=== PATIENT | female | born 1955 | race Caucasian/White ===

== ENCOUNTER → 2017-08-19 | Outpatient (CLI) | payer BC, OTHER ==
--- NOTE | 2017-08-19 09:51 | RADIOLOGY REPORT (SQ) ---
EXAM DESCRIPTION: CT ABD/PELVIS WITH IV ORAL COMPLETED DATE/TIME: 08/19/2017 9:37 am REASON FOR STUDY: RLQ ABD PAIN (R10.31) R10.31 RIGHT LOWER QUADRANT PAIN COMPARISON: None. TECHNIQUE: CT scan of the abdomen and pelvis performed using helical scanning technique with dynamic intravenous contrast injection. No oral contrast. Images reviewed with lung, soft tissue, and bone windows. Reconstructed coronal and sagittal MPR images reviewed. Delayed images for evaluation of the urinary system also acquired. All images stored on PACS. All CT scanners at this facility use dose modulation, iterative reconstruction, and/or weight based d osing when appropriate to reduce radiation dose to as low as reasonably achievable (ALARA). [facility]: Dose Right [facility]: CareDose [facility]: Dose Right [facility]: Teradose 4D [facility]: LYYN CONTRAST TYPE AND DOSE: contrast/concentration: Isovue 370.00 mg/ml; Total Contrast Delivered: 79.0 ml; Total Saline Delivered: 68.0 ml RENAL FUNCTION: Creatinine 0.6. RADIATION DOSE: CT Rad equipment meets quality standard of care and radiation dose reduction techniq ues were employed. CTDIvol: 11.6 - 13.4 mGy. DLP: 1294 mGy-cm.. LIMITATIONS: None. FINDINGS: LOWER CHEST: No significant findings. No nodules or infiltrates. LIVER: Normal size. No masses. No dilated ducts. SPLEEN: Normal size. No focal lesions. PANCREAS: No masses. No significant calcifications. No adjacent inflammation or peripancreatic fluid collections. Pancreatic duct not dilated. GALLBLADDER: Surgically absent. ADRENAL GLANDS: No significant masses or asymmetry. RIGHT KIDNEY AND URETER: No solid masses. No significant calcifications. No hydronephrosis or hyd roureter. LEFT KIDNEY AND URETER: No solid masses. No significant calcifications. No hydronephrosis or hydr oureter. AORTA AND VESSELS: No aneurysm. No dissection. Renal arteries, SMA, celiac without stenosis. RETROPERITONEUM: No retroperitoneal adenopathy, hemorrhage or masses. BOWEL AND PERITONEAL CAVITY: Previous gastric bypass. No masses or inflammatory changes. No free flu id or peritoneal masses. APPENDIX: Normal. PELVIS: No mass. No free fluid. Normal bladder. ABDOMINAL WALL: No masses. Two hernias located just above the umbilicus, containing fat only. BONES: No significant or acute findings. OTHER: No other significant finding. IMPRESSION: ABDOMINAL WALL HERNIAS LOCATED JUST ABOVE THE UMBILICUS, CONTAINING FAT ONLY. NO INVOLV EMENT OF BOWEL. NO OTHER SIGNIFICANT OR ACUTE FINDING IN THE ABDOMEN OR PELVIS ON CT SCAN WITH IV CO NTRAST. TECHNICAL DOCUMENTATION: JOB ID: [id number] Quality ID # [id number]: Final reports with documentation of one or more dose reduction techniques (e.g., Au tomated exposure control, adjustment of the mA and/or kV according to patient size, use of iterative reconstruction technique) 2010 [email or web address]- All Rights Reserved
== END ==
LOC: RAD 08:44
PROVIDERS: ATTEND Internal Medicine
DX: K43.9 Ventral hernia without obstruction or gangrene (principal)
CPT/HCPCS: 74177; 82565

== ENCOUNTER 2017-09-15 18:00 | Emergency (ER) | payer BC ==
--- NOTE | 2017-09-15 19:08 | ER Document Report ---
ED Medical Screen (RME) - General Chief Complaint: Rectal Bleeding Stated Complaint: BLOOD IN STOOL Time Seen by Provider: 09/15/17 18:58 Notes: This 62-year-old's of passing large amounts of bright red blood today with bowel movements. She does note the bowel movement burn 2 weeks ago. Previous colonoscopy they said there was something just on the inside but she is not sure if it was internal hemorrhoids or ulcerations possibly. She did have CT scan abdomen pelvis with contrast about 3 weeks ago showing 2 fat-containing abdominal hernia just above the umbilicus but no other abnormalities. I have greeted and performed a rapid initial assessment of this patient. A comprehensive ED assessment and evaluation of the patient, analysis of test results and completion of the medical decision making process will be conducted by additional ED providers. TRAVEL OUTSIDE OF THE [place] IN LAST 30 DAYS: No - Related Data Allergies/Adverse Reactions: bismuth subsalicylate [From Pepto-Bismol] Allergy (Mild, Verified 09/03/16 08:43 ) NAUSEA/VOMITTING micronase Allergy (Mild, Uncoded 09/03/16 08:43) RASH Past Medical History - Social History Chew tobacco use (# tins/day): No Frequency of alcohol use: Occasional Drug Abuse: None - Past Medical History Cardiac Medical History: Reports: Hx Hypertension Denies: Hx Coronary Artery Disease, Hx Heart Attack Pulmonary Medical History: Denies: Hx Asthma, Hx Bronchitis, Hx COPD, Hx Pneumonia Neurological Medical History: Denies: Hx Cerebrovascular Accident, Hx Seizures Renal/ Medical History: Denies: Hx Peritoneal Dialysis Musculoskeltal Medical History: Reports Hx Arthritis - LT HIP,HANDS,FINGERS Past Surgical History: Denies: Hx Hysterectomy - Immunizations Hx Diphtheria, Pertussis, Tetanus Vaccination: Yes Physical Exam - Vital signs Vitals: Temp Pulse Resp BP Pulse Ox 98.7 F 94 16 95/52 L 97 09/15/17 18:23 09/15/17 18:23 09/15/17 18:23 09/15/17 18:23 09/15/17 18:23 Course - Vital Signs Vital signs: Temp Pulse Resp BP Pulse Ox 98.7 F 94 16 95/52 L 97 09/15/17 18:23 09/15/17 18:23 09/15/17 18:23 09/15/17 18:23 09/15/17 18:23
[2017-09-15 19:39] LABS: ABSOLUTE BASOPHILS # (AUTO) 0.1 10^3/uL (0.0-0.2); ABSOLUTE EOSINOPHILS # (AUTO) 0.1 10^3/uL (0.0-0.6); ABSOLUTE LYMPHOCYTES (AUTO) 2.8 10^3/uL (0.5-4.7); ABSOLUTE MONOCYTES (AUTO) 0.4 10^3/uL (0.1-1.4); ABSOLUTE NEUT (AUTO) 4.7 10^3/uL (1.7-8.2); BASOPHILS % (AUTO) 0.9 % (0-2); EOSINOPHILS % (AUTO) 1.1 % (0-6); HEMATOCRIT 40.4 % (36.0-47.0); HEMOGLOBIN 13.5 g/dL (12.0-15.5); LYMPHOCYTES % (AUTO) 34.6 % (13-45); MEAN CORPUSCULAR HEMOGLOBIN 29.3 pg (27.0-33.4); MEAN CORPUSCULAR HGB CONC 33.3 g/dL (32.0-36.0); MEAN CORPUSCULAR VOLUME 88 fl (80-97); MONOCYTES % (AUTO) 5.4 % (3-13); PLATELET COUNT 348 10^3/uL (150-450); RED BLOOD COUNT 4.59 10^6/uL (3.72-5.28); RED CELL DISTRIBUTION WIDTH 13.2 % (11.5-14.0); TOTAL CELLS COUNTED % (AUTO) 100 %; WHITE BLOOD COUNT 8.1 10^3/uL (4.0-10.5)
[2017-09-15 19:59] LABS: ALANINE AMINOTRANSFERASE 37 U/L (9-52); ALKALINE PHOSPHATASE 110 U/L (38-126); ANION GAP 9 (5-19); ASPARTATE AMINO TRANSFERASE 22 U/L (14-36); BILIRUBIN,DIRECT 0.2 mg/dL (0.0-0.4); BILIRUBIN,TOTAL 0.4 mg/dL (0.2-1.3); BLOOD UREA NITROGEN 21 mg/dL (7-20); CALCIUM 10.1 mg/dL (8.4-10.2); CARBON DIOXIDE 31 mmol/L (22-30); CHLORIDE 97 mmol/L (98-107); GLUCOSE 268 mg/dL (75-110); POTASSIUM 4.7 mmol/L (3.6-5.0); TOTAL PROTEIN 6.5 g/dL (6.3-8.2)
[2017-09-15] MEDS ORDERED: NORMAL SALINE 1000 ML 1,000 ML IV ONE (20:41)
[2017-09-15] MEDS ORDERED: PANTOPRAZOLE SODIUM 40 MG VIAL IV ONE (20:42)
[2017-09-15] MEDS ORDERED: PANTOPRAZOLE SODIUM 40 MG VIAL IV PRN (20:43)
--- NOTE | 2017-09-15 20:48 | ER Document Report ---
ED General - General Chief Complaint: Rectal Bleeding Stated Complaint: BLOOD IN STOOL Time Seen by Provider: 09/15/17 18:58 TRAVEL OUTSIDE OF THE [place] IN LAST 30 DAYS: No - HPI Notes: Patient is a 62-year-old female with a history of hypertension, hyperglyceridemia, diabetes, status post gastric bypass who presents the ED complaining of bright red blood per rectum that began this afternoon 2. Patient states that she initially felt an urge to go to the bathroom and ended up evacuating some excretions into her underwear which she noticed to be blood. Patient then had a bowel movement that was loose and was more blood than stool. Patient states that about 3 weeks ago she had right-sided abdominal pain and had a CT scan ordered which was unremarkable for any acute pathology. Patient states that she did have one episode of dizziness upon arrival to the ED which has since resolved. Patient states that aside from that she has been feeling well without any other recent illness. She still eating and drinking without difficulties. She is urinating normally and having normal bowel movements. Patient has not noticed any rectal pain or masses on the outside of her anus. Denies any vaginal odor/bleeding/discharge. Denies being on blood thinners. Denies any headache, fever, neck pain, URI, sore throat, chest pain, palpitations, syncope, cough, shortness of breath, wheeze, dyspnea, abdominal pain, nausea/vomiting, urinary retention, dysuria, hematuria, loss of control of bowel or bladder, numbness/tingling, saddle anesthesia, muscle paralysis/ weakness, or rash. - Related Data Allergies/Adverse Reactions: bismuth subsalicylate [From Pepto-Bismol] Allergy (Mild, Verified 09/03/16 08:43 ) NAUSEA/VOMITTING micronase Allergy (Mild, Uncoded 09/03/16 08:43) RASH Past Medical History - Social History Smoking Status: Never Smoker Chew tobacco use (# tins/day): No Frequency of alcohol use: Occasional Drug Abuse: None Family History: Reviewed & Not Pertinent Patient has suicidal ideation: No Patient has homicidal ideation: No - Past Medical History Cardiac Medical History: Reports: Hx Hypertension Denies: Hx Coronary Artery Disease, Hx Heart Attack Pulmonary Medical History: Denies: Hx Asthma, Hx Bronchitis, Hx COPD, Hx Pneumonia Neurological Medical History: Denies: Hx Cerebrovascular Accident, Hx Seizures Endocrine Medical History: Reports: Hx Diabetes Mellitus Type 2 Renal/ Medical History: Denies: Hx Peritoneal Dialysis Musculoskeltal Medical History: Reports Hx Arthritis - LT HIP,HANDS,FINGERS Past Surgical History: Reports: Hx Abdominal Surgery - gastric bypass-2004. Denies: Hx Hysterectomy - Immunizations Hx Diphtheria, Pertussis, Tetanus Vaccination: Yes Hx Pneumococcal Vaccination: 06/15/15 Physical Exam - Vital signs Vitals: Temp Pulse Resp BP Pulse Ox 98.7 F 94 16 95/52 L 97 09/15/17 18:23 09/15/17 18:23 09/15/17 18:23 09/15/17 18:23 09/15/17 18:23 Course - Re-evaluation Re-evalutation: 09/15/17 21:28 Guiac positive. Vitals stable. Spoke with Dr. Whitney: discharge home with stool softener and MV, they will call her tomorrow to schedule an outpatient appointment. Pt has no new concerns or complaints at this time. 09/15/17 21:32 Patient is an afebrile, well-hydrated, 62-year-old female who presents to the ED with guaiac positive stool, suspect lower GI bleeding at this time. Vitals are stable. PE is otherwise unremarkable. Pt tolerating PO and currently asymptomatic otherwise. CBC, CMP unremarkable for any acute pathology. Low suspicion/risk for acute appendicitis, bowel obstruction, acute cholecystitis, acute cholangitis, perforated diverticulitis, incarcerated hernia, pancreatitis , perforated ulcer, peritonitis, sepsis, pelvic inflammatory disease, ectopic , tubo-ovarian abscess, ovarian torsion, severe dehydration, shock, or other systemic emergent condition at this time. Patient is aware that her condition can change from initial presentation and she needs to monitor symptoms closely and seek medical attention if any acute changes. Conservative measures otherwise for symptoms. As reviewed, the general surgeon's office will contact you tomorrow to schedule appointment for this week. Call and notify your PCM as well of your visit today. Return to the ED with any worsening/concerning symptoms otherwise as reviewed in discharge. Patient is in agreement. - Vital Signs Vital signs: Temp Pulse Resp BP Pulse Ox 98.7 F 94 16 95/52 L 97 09/15/17 18:23 09/15/17 18:23 09/15/17 18:23 09/15/17 18:23 09/15/17 18:23 - Laboratory Result Diagrams: 09/15/17 19:16 09/15/17 19:16 Laboratory results interpreted by me: 09/15/17 19:16 Chloride 97 L Carbon Dioxide 31 H BUN 21 H Glucose 268 H Discharge - Discharge Clinical Impression: GI bleed Qualifiers: GI bleed type/associated pathology: unspecified gastrointestinal hemorrhage type Qualified Code(s): K92.2 - Gastrointestinal hemorrhage, unspecified Condition: Stable Disposition: HOME, SELF-CARE Instructions: Rectal Bleeding, Unclear Cause ([facility]) Additional Instructions: Maintain adequate fluid and food intake Stool softener and multi-vitamin Zofran as needed tylenol if needed Monitor for any worsening symptoms Make sure you are staying hydrated enough to urinate and have normal BM's Recheck with your PCM in 3-5 days Keep appointment with General Surgeon, they will call you tomorrow to schedule an appointment for this week* Return to the ED with any worsening symptoms and/or development of fever, headache, chest pain, palpitations, syncope, shortness of breath, trouble breathing, abdominal pain, n/v/d, blood in stool/urine, weakness, or other worsening symptoms that are concerning to you. Prescriptions: Docusate Sodium 100 mg PO BID #10 capsule Multivitamin [Multiple Vitamins] 1 each PO DAILY #30 tablet Referrals: HALINA RAMIREZ MD [Primary Care Provider] - Follow up in 3-5 days MARCELA WHITNEY MD [ACTIVE STAFF] - Follow up in 3-5 days
[2017-09-15 22:10] VITALS: BP 96/45
== END 2017-09-15 22:10 | disposition home or self-care (01) ==
LOC: ER 18:00
DX: K92.2 Gastrointestinal hemorrhage, unspecified (principal); Z98.84 Bariatric surgery status; E11.9 Type 2 diabetes mellitus without complications; I10 Essential (primary) hypertension; R19.4 Change in bowel habit; Z88.8 Allergy status to other drugs, medicaments and biological substances
CPT/HCPCS: 99285; 96365; 36415; 85025; 82272; 80053; S0164; J7030

== ENCOUNTER 2017-09-17 04:30 | Inpatient (IN) | payer BC ==
[2017-09-17] MEDS ORDERED: NORMAL SALINE 1000 ML 1,000 ML IV ONE (05:01)
--- NOTE | 2017-09-17 05:02 | ER Document Report ---
ED GI Bleed / Rectal Pain - General Chief Complaint: Rectal Bleeding Stated Complaint: RECTAL BLEEDING Time Seen by Provider: 09/17/17 04:43 Notes: Patient is a 62-year-old female that comes emergency department for chief complaint of bloody stool. She states that she has had 3 bloody bowel movements since 1 AM, states she had a few clots as well. Stool color is maroon. She was evaluated 2 days ago and she has an appointment with Dr. Yang , gastroenterology tomorrow. She states that she has been lightheaded and had to stay in bed all day because of the lightheadedness. She was instructed to start a stool softener but could not make it to the pharmacy because of her lightheadedness. She denies fever, vomiting, abdominal pain. She does not take a blood thinner but she is taking 325 mg of aspirin daily which she put herself on. She has had colonoscopy within the past year which she states showed a polyp which they were unable to remove. Positive family history of colon cancer. Personal history of type 2 diabetes, hypertension, hyperlipidemia. Has had gastric bypass surgery, cholecystectomy. TRAVEL OUTSIDE OF THE [place] IN LAST 30 DAYS: No - Related Data Allergies/Adverse Reactions: bismuth subsalicylate [From Pepto-Bismol] Allergy (Mild, Verified 09/03/16 08:43 ) NAUSEA/VOMITTING micronase Allergy (Mild, Uncoded 09/03/16 08:43) RASH Past Medical History - General Information source: Patient - Social History Smoking Status: Never Smoker Frequency of alcohol use: None Drug Abuse: None Lives with: Family Family History: Reviewed & Not Pertinent - Past Medical History Cardiac Medical History: Reports: Hx Hypertension Denies: Hx Coronary Artery Disease, Hx Heart Attack Pulmonary Medical History: Denies: Hx Asthma, Hx Bronchitis, Hx COPD, Hx Pneumonia Neurological Medical History: Denies: Hx Cerebrovascular Accident, Hx Seizures Endocrine Medical History: Reports: Hx Diabetes Mellitus Type 2 Renal/ Medical History: Denies: Hx Peritoneal Dialysis Musculoskeltal Medical History: Reports Hx Arthritis - LT HIP,HANDS,FINGERS Past Surgical History: Reports: Hx Abdominal Surgery - gastric bypass-2004. Denies: Hx Hysterectomy - Immunizations Hx Diphtheria, Pertussis, Tetanus Vaccination: Yes Hx Pneumococcal Vaccination: 06/15/15 Review of Systems - Review of Systems Constitutional: No symptoms reported EENT: No symptoms reported Cardiovascular: See HPI Respiratory: No symptoms reported Gastrointestinal: See HPI Genitourinary: No symptoms reported Female Genitourinary: No symptoms reported Musculoskeletal: No symptoms reported Skin: No symptoms reported Hematologic/Lymphatic: No symptoms reported Neurological/Psychological: No symptoms reported Physical Exam - Vital signs Vitals: Temp Pulse Resp BP Pulse Ox 97.5 F 96 18 98/50 L 96 09/17/17 04:09/17/17 04:09/17/17 04:09/17/17 04:09/17/17 04:31 Interpretation: Normal - General General appearance: Alert In distress: None - HEENT Head: Normocephalic, Atraumatic Eyes: Normal Conjunctiva: Normal Extraocular movements intact: Yes Eyelashes: Normal Pupils: PERRL Sinus: Normal Mouth/Lips: Normal Mucous membranes: Normal Pharynx: Normal Neck: Normal - Respiratory Respiratory status: No respiratory distress Chest status: Nontender Breath sounds: Normal. No: Decreased air movement, Wheezing Chest palpation: Normal - Cardiovascular Rhythm: Regular. No: Tachycardia Heart sounds: Normal auscultation, S1 appreciated, S2 appreciated Murmur: No - Abdominal Inspection: Normal Distension: No distension Bowel sounds: Normal Tenderness: Nontender. No: Tender - Rectal Stool: Heme positive, Bloody Hemorrhoids: None - Back Back: Normal, Nontender. No: Tender - Extremities General upper extremity: Normal inspection, Nontender, Normal color, Normal ROM , Normal temperature General lower extremity: Normal inspection, Nontender, Normal color, Normal ROM , Normal temperature, Normal weight bearing. No: Jimmy's sign - Neurological Neuro grossly intact: Yes Cognition: Normal Orientation: AAOx4 Sara Coma Scale Eye Opening: Spontaneous Sara Coma Scale Verbal: Oriented Sara Coma Scale Motor: Obeys Commands Sara Coma Scale Total: 15 Speech: Normal Motor strength normal: LUE, RUE, LLE, RLE Sensory: Normal - Psychological Associated symptoms: Normal affect, Normal mood - Skin Skin Temperature: Warm Skin Moisture: Dry Skin Color: Pale Course - Re-evaluation Re-evalutation: On examination patient what appears to be mixed bloody stools, smells of GI bleed. Soft abdomen. Patient slightly pale but is not toxic in appearance. She is alert and talkative. Positive stool Hemoccult. 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 Yang, gastroenterology is on air director today. 09/17/17 05:30 Nurse informed me that patient was complaining of chest discomfort. I evaluated patient at bedside, she states that she felt a discomfort in the center of her chest for several minutes, there was very minimal and only a 1 out of 10 pain, it has already subsided before I evaluated the patient. She does not have cardiac history. Adding EKG, chest x-ray, troponin to workup. EKG showing sinus rhythm at a rate of 87, low voltage, no T-wave inversions or ST segment changes in consecutive leads, QTC is 438. On reevaluation's patient continues to be asymptomatic. Blood pressures improved after IV fluids. CBC showed significant downtrending, just over 48 hours ago her hemoglobin was 13.5, now it is 10.7. Remaining laboratory studies are unremarkable. Spoke with Dr. Garcia. Patient has not had any additional bowel movements. Blood pressure has remained stable on reevaluation. Patient unchanged from prior. 09/17/17 06:[address] [place]in, on-call for Dr. Iverson patient's provider, patient will be admitted to telemetry. Patient states agreement with this plan. She will be kept n.p.o. - Vital Signs Vital signs: Temp Pulse Resp BP Pulse Ox 97.5 F 96 13 109/56 L 98 09/17/17 04:31 09/17/17 04:31 09/17/17 07:01 09/17/17 07:01 09/17/17 07:01 - Laboratory Result Diagrams: 09/17/17 05:30 09/17/17 05:30 Laboratory results interpreted by me: 09/17/17 09/17/17 05:30 05:30 RBC 3.54 L Hgb 10.7 L D Hct 31.2 L Sodium 136.7 L BUN 25 H Glucose 301 H Total Protein 5.5 L Albumin 3.4 L Discharge - Discharge Clinical Impression: Lower GI bleed, Lightheaded Condition: Fair Disposition: ADMITTED INPATIENT Admitting Provider: [facility] Admitted: Telemetry
[2017-09-17 05:56] LABS: ABSOLUTE BASOPHILS # (AUTO) 0.1 10^3/uL (0.0-0.2); ABSOLUTE EOSINOPHILS # (AUTO) 0.1 10^3/uL (0.0-0.6); ABSOLUTE LYMPHOCYTES (AUTO) 2.5 10^3/uL (0.5-4.7); ABSOLUTE MONOCYTES (AUTO) 0.4 10^3/uL (0.1-1.4); ABSOLUTE NEUT (AUTO) 3.7 10^3/uL (1.7-8.2); BASOPHILS % (AUTO) 0.8 % (0-2); EOSINOPHILS % (AUTO) 1.7 % (0-6); HEMATOCRIT 31.2 % (36.0-47.0); LYMPHOCYTES % (AUTO) 37.3 % (13-45); MEAN CORPUSCULAR HEMOGLOBIN 30.2 pg (27.0-33.4); MEAN CORPUSCULAR HGB CONC 34.3 g/dL (32.0-36.0); MEAN CORPUSCULAR VOLUME 88 fl (80-97); MONOCYTES % (AUTO) 5.7 % (3-13); PLATELET COUNT 254 10^3/uL (150-450); RED BLOOD COUNT 3.54 10^6/uL (3.72-5.28); RED CELL DISTRIBUTION WIDTH 13.4 % (11.5-14.0); SEGMENTED NEUTROPHILS % (AUTO) 54.5 % (42-78); TOTAL CELLS COUNTED % (AUTO) 100 %; WHITE BLOOD COUNT 6.7 10^3/uL (4.0-10.5)
[2017-09-17 05:57] LABS: HEMOGLOBIN 10.7 g/dL (12.0-15.5); INTERNATIONAL RATION (INR) 0.91; PROTHROMBIN TIME 12.9 SEC (11.4-15.4)
[2017-09-17 05:58] LABS: PARTIAL THROMBOPLASTIN TIME 28.7 SEC (23.5-35.8)
--- NOTE | 2017-09-17 06:01 | RADIOLOGY REPORT (SQ) ---
EXAM DESCRIPTION: CHEST SINGLE VIEW CLINICAL HISTORY: 62 years, Female, chest pain COMPARISON: None. FINDINGS: Normal lung volume, clear parenchyma, normal cardiac silhouette, and mild scoliotic curvature. IMPRESSION: No acute cardiopulmonary findings. 2011 [employer]- All Rights Reserved
[2017-09-17 06:05] LABS: ALANINE AMINOTRANSFERASE 36 U/L (9-52); ALBUMIN 3.4 g/dL (3.5-5.0); ALKALINE PHOSPHATASE 90 U/L (38-126); ANION GAP 11 (5-19); ASPARTATE AMINO TRANSFERASE 17 U/L (14-36); BILIRUBIN,DIRECT 0.2 mg/dL (0.0-0.4); BILIRUBIN,TOTAL 0.3 mg/dL (0.2-1.3); BLOOD UREA NITROGEN 25 mg/dL (7-20); CALCIUM 9.2 mg/dL (8.4-10.2); CARBON DIOXIDE 24 mmol/L (22-30); CHLORIDE 102 mmol/L (98-107); GLUCOSE 301 mg/dL (75-110); POTASSIUM 4.3 mmol/L (3.6-5.0); SODIUM 136.7 mmol/L (137-145); TOTAL PROTEIN 5.5 g/dL (6.3-8.2)
[2017-09-17] MEDS ORDERED: NORMAL SALINE 250 ML IV PRN ×2 (07:37)
[2017-09-17] MEDS ORDERED: INSULIN LISPRO 100 UNIT/ML 3 ML VIAL SUBCUT PRN (08:15)
[2017-09-17] MEDS ORDERED: GLUCAGON,HUMAN RECOMB 1 MG INJ IM PRN (08:15)
[2017-09-17] MEDS ORDERED: DEXTROSE 40% GEL 15 GM TUBE PO PRN ×2 (08:15)
[2017-09-17] MEDS ORDERED: DEXTROSE 50%-WATER 25 GM/50 ML DISP.SYRIN IV PRN ×2 (08:15)
[2017-09-17] MEDS: NORMAL SALINE 1000 ML 1,000 ML IV PRN ×2 (08:48→19:01)
[2017-09-17 08:57] LABS: HEMATOCRIT 30.4 % (36.0-47.0); HEMOGLOBIN 10.2 g/dL (12.0-15.5); MEAN CORPUSCULAR HEMOGLOBIN 29.9 pg (27.0-33.4); MEAN CORPUSCULAR HGB CONC 33.7 g/dL (32.0-36.0); MEAN CORPUSCULAR VOLUME 89 fl (80-97); PLATELET COUNT 262 10^3/uL (150-450); RED BLOOD COUNT 3.42 10^6/uL (3.72-5.28); WHITE BLOOD COUNT 6.9 10^3/uL (4.0-10.5)
[2017-09-17 09:03] LABS: INTERNATIONAL RATION (INR) 0.93; PROTHROMBIN TIME 13.1 SEC (11.4-15.4)
[2017-09-17 09:26] LABS: CREATINE KINASE MB 4.75 ng/mL (<4.55)
[2017-09-17 09:30] LABS: FREE T4 (FREE THYROXINE) 1.09 ng/dL (0.78-2.19); TROPONIN I < 0.012 ng/mL
[2017-09-17 09:44] LABS: THYROID STIMULATING HORMONE 4.38 uIU/mL (0.47-4.68)
--- NOTE | 2017-09-17 10:23 | EKG REPORT ---
SEVERITY:- OTHERWISE NORMAL ECG - SINUS RHYTHM LOW VOLTAGE IN FRONTAL LEADS : Confirmed by: Marlena Coy 17-Sep-2017 10:23:08
--- NOTE | 2017-09-17 12:37 | PDOC CONSULTATION ---
Consultation Consult Date: 09/17/17 Attending physician:: DEION REBOLLEDO Consult reason:: GI bleeding. History of diverticulosis in the past. History of polyp History of Present Illness Admission Date/PCP: 09/17/17 08:09 HALINA RAMIREZ MD History of Present Illness: JOSUÉ HICKS is a 62 year old female She presented to the emergency room earlier today. She has been complaining of painless GI bleeding. She is a previous patient of . Her last colonoscopy was approximately a year ago. She apparently has a known history of diverticulosis. Starting Friday afternoon she had several episodes of large-volume rectal bleeding. She did have perhaps some pain on her left lower quadrant and right lower quadrant but seems to have resolved. She denies any fevers or chills. She denies any history of hypertension. She denies any history of irregular heartbeat. During her last colonoscopy she was noted to have a possible polyp. According to her Dr. garvin tattooed the area. She had been brought back for an intraoperative colonoscopy but the lesion was not to be found. She denies any chest pain or shortness of breath. No previous history of peptic ulcer disease. She does not have any hemodynamic instability. Past Medical History Cardiac Medical History: Reports: Hypertension Denies: Coronary Artery Disease, Myocardial Infarction Pulmonary Medical History: Denies: Asthma, Bronchitis, Chronic Obstructive Pulmonary Disease (COPD), Pneumonia Neurological Medical History: Denies: Seizures Endocrine Medical History: Reports: Diabetes Mellitus Type 2 Musculoskeltal Medical History: Reports: Arthritis - LT HIP,HANDS,FINGERS Psychiatric Medical History: Reports: Depression Hematology: Reports: Anemia Past Surgical History Past Surgical History: Denies: Hysterectomy Social History Lives with: Family Smoking Status: Never Smoker Frequency of Alcohol Use: None Hx Recreational Drug Use: No Drugs: None Hx Prescription Drug Abuse: No Family History Family History: Reviewed & Not Pertinent Parental Family History Reviewed: Yes Children Family History Reviewed: Unknown Sibling(s) Family History Reviewed.: Unknown Medication/Allergy Home Medications: Aspirin [Aspirin 325 mg Tablet] 325 mg PO DAILY 09/17/17 Ferrous Sulfate [Iron] 325 mg PO DAILY 09/17/17 Insulin Detemir [Levemir Flextouch] 20 unit SQ DAILY 09/17/17 Lisinopril [Prinivil 10 mg Tablet] 10 mg PO DAILY 09/17/17 Montelukast Sodium [Singulair 10 mg Tablet] 10 mg PO QHS 09/17/17 Multivitamin [Tab-A-Ginny (Multiple Vitamin) Tablet] 1 tab PO DAILY 09/17/17 [place]-3 Fatty Acids/Fish Oil [Fish Oil 1,000 mg Capsule] 1 cap PO DAILY Pravastatin Sodium [Pravachol] 20 mg PO DAILY 09/17/17 Ubidecarenone/Vitamin E Mixed [Coq10 Sg 100 Softgel] 1 cap PO DAILY 09/17/17 Vitamin B Complex [B Complex] 1 tab PO DAILY 09/17/17 Vitamin E 1,000 unit PO DAILY 09/17/17 Allergies/Adverse Reactions: bismuth subsalicylate [From Pepto-Bismol] Allergy (Mild, Verified 09/03/16 08:43 ) NAUSEA/VOMITTING micronase Allergy (Mild, Uncoded 09/03/16 08:43) RASH Review of Systems Constitutional: ABSENT: fever(s), headache(s), night sweats, weakness Eyes: ABSENT: visual disturbances Ears: ABSENT: hearing changes Nose, Mouth, and Throat: ABSENT: mouth pain, sore throat Cardiovascular: ABSENT: orthropnea, palpitations Respiratory: ABSENT: dyspnea, hemoptysis Gastrointestinal: PRESENT: hematochezia. ABSENT: melena, nausea, vomiting Genitourinary: ABSENT: dysuria, hematuria Musculoskeletal: ABSENT: deformity, joint swelling Integumentary: ABSENT: lesions, pruritus Neurological: ABSENT: syncope, tingling, tremor(s), vertigo Endocrine: ABSENT: polydipsia, polyphagia, polyuria Hematologic/Lymphatic: ABSENT: easy bruising Physical Exam Vital Signs: Temp Pulse Resp BP Pulse Ox 98.4 F 99 19 127/65 H 96 09/17/17 10:10 09/17/17 10:10 09/17/17 11:31 09/17/17 11:31 09/17/17 11:31 Intake & Output 09/16/17 09/17/17 09/18/17 06:59 06:59 06:59 Intake Total 0 Balance 0 General appearance: PRESENT: no acute distress, well-developed, well-nourished Head exam: PRESENT: atraumatic, normocephalic Eye exam: PRESENT: EOMI, PERRLA. ABSENT: nystagmus, periorbital swelling, scleral icterus Mouth exam: PRESENT: moist. ABSENT: neck supple Throat exam: ABSENT: tonsillar exudate, tonsillogmegaly Neck exam: ABSENT: meningismus, tenderness, thyromegaly Respiratory exam: PRESENT: symmetrical, unlabored. ABSENT: tachypnea, wheezes Cardiovascular exam: PRESENT: RRR, +S1, +S2 GI/Abdominal exam: PRESENT: soft. ABSENT: rebound, rigid, tenderness Extremities exam: ABSENT: joint swelling, pedal edema Musculoskeletal exam: PRESENT: full ROM Neurological exam: PRESENT: oriented to time, oriented to situation, CN II-XII grossly intact Skin exam: PRESENT: normal color. ABSENT: mottled, pallor, urticaria, vesicles Results Laboratory Results: 09/17/17 08:45 09/17/17 09/17/17 09/17/17 08:45 08:45 08:45 WBC 6.9 RBC 3.42 L Hgb 10.2 L Hct 30.4 L MCV 89 MCH 29.9 MCHC 33.7 RDW 13.0 Plt Count 262 Ammonia < 8.7 L Lipase TSH 4.38 Free T4 1.09 09/17/17 08:45 WBC RBC Hgb Hct MCV MCH MCHC RDW Plt Count Ammonia Lipase 139.0 TSH Free T4 09/17/17 09/17/17 08:45 08:45 Creatine Kinase 138 H CK-MB (CK-2) 4.75 H Troponin I < 0.012 Impressions: Chest X-Ray 09/17/17 05:30 IMPRESSION: No acute cardiopulmonary findings. 2010 [employer]- All Rights Reserved Assessment & Plan - Diagnosis (1) Lower GI bleed Plan: Likely diverticular bleeding. Agree with admission. Check H&H. Blood transfusion in progress. Patient history of a polyp that was initially seen and tattooed but on subsequent colonoscopy could not be located. We will need repeat colonoscopy. Risk benefits alternatives of the procedure including risks of bleeding, perforation requiring surgery are explained to the patient detail and informed consent was obtained. I spoke to her about the sedation. She has opted for conscious sedation medications. - Time Time Spent: 50 to 70 Minutes
[2017-09-17] MEDS: INFLUENZA ADLT QUAD (36MOS+) 2017-18 VAC 0.5 ML SYR IM PRN (12:46)
[2017-09-17 15:27] LABS: CREATINE KINASE MB 3.96 ng/mL (<4.55)
[2017-09-17 15:30] LABS: TROPONIN I < 0.012 ng/mL
--- NOTE | 2017-09-17 17:36 | PDOC H&P ---
History of Present Illness Admission Date/PCP: 09/17/17 06:52 HALINA RAMIREZ MD History of Present Illness: Patient is 62-year-old female, she is well-known to me, she has type 2 diabetes mellitus she came to the emergency room for evaluation of passage of li blood per rectum. She noticed the blood last night but does increase in quantity and frequency. She has no definitive abdominal pain. She was evaluated for abdominal pain towards the end of last year at that time she had a CAT scan of the abdomen and pelvis with contrast, it was negative for any acute pathology other than a small hernia, this blood loss is most likely a diverticular bleed, she is known to have a history of diverticulosis. Because of the profuse constant rectal bleed she would need blood transfusion and consultation requested from school library media specialist for colonoscopy. Past Medical History Cardiac Medical History: Reports: Hypertension Endocrine Medical History: Reports: Diabetes Mellitus Type 2 Musculoskeltal Medical History: Reports: Arthritis - LT HIP,HANDS,FINGERS Psychiatric Medical History: Reports: Depression Hematology: Reports: Anemia Social History Lives with: Family Smoking Status: Never Smoker Frequency of Alcohol Use: None Hx Recreational Drug Use: No Drugs: None Hx Prescription Drug Abuse: No Family History Family History: Reviewed & Not Pertinent Parental Family History Reviewed: Yes Children Family History Reviewed: Yes Sibling(s) Family History Reviewed.: Yes Medication/Allergy Home Medications: Aspirin [Aspirin 325 mg Tablet] 325 mg PO DAILY 09/17/17 Ferrous Sulfate [Iron] 325 mg PO DAILY 09/17/17 Insulin Detemir [Levemir Flextouch] 20 unit SQ DAILY 09/17/17 Lisinopril [Prinivil 10 mg Tablet] 10 mg PO DAILY 09/17/17 Montelukast Sodium [Singulair 10 mg Tablet] 10 mg PO QHS 09/17/17 Multivitamin [Tab-A-Ginny (Multiple Vitamin) Tablet] 1 tab PO DAILY 09/17/17 [place]-3 Fatty Acids/Fish Oil [Fish Oil 1,000 mg Capsule] 1 cap PO DAILY Pravastatin Sodium [Pravachol] 20 mg PO DAILY 09/17/17 Ubidecarenone/Vitamin E Mixed [Coq10 Sg 100 Softgel] 1 cap PO DAILY 09/17/17 Vitamin B Complex [B Complex] 1 tab PO DAILY 09/17/17 Vitamin E 1,000 unit PO DAILY 09/17/17 Allergies/Adverse Reactions: bismuth subsalicylate [From Pepto-Bismol] Allergy (Mild, Verified 09/03/16 08:43 ) NAUSEA/VOMITTING micronase Allergy (Mild, Uncoded 09/03/16 08:43) RASH Review of Systems Constitutional: ABSENT: chills, fever(s), headache(s), weight gain, weight loss Eyes: ABSENT: visual disturbances Ears: ABSENT: hearing changes Cardiovascular: ABSENT: chest pain, dyspnea on exertion, edema, orthropnea, palpitations Respiratory: ABSENT: cough, hemoptysis Gastrointestinal: PRESENT: hematochezia Genitourinary: ABSENT: dysuria, hematuria Musculoskeletal: ABSENT: joint swelling Integumentary: ABSENT: rash, wounds Neurological: ABSENT: abnormal gait, abnormal speech, confusion, dizziness, focal weakness, syncope Psychiatric: ABSENT: anxiety, depression, homidical ideation, suicidal ideation Endocrine: ABSENT: cold intolerance, heat intolerance, menstrual abnormalities, polydipsia, polyuria Hematologic/Lymphatic: ABSENT: easy bleeding, easy bruising, lymphadenopathy Physical Exam Vital Signs: Temp Pulse Resp BP Pulse Ox 98.1 F 84 18 138/68 H 96 09/17/17 16:30 09/17/17 16:30 09/17/17 16:30 09/17/17 16:30 09/17/17 16:30 Intake & Output 09/16/17 09/17/17 09/18/17 06:59 06:59 06:59 Intake Total 700 Output Total 300 Balance 400 General appearance: PRESENT: no acute distress, well-developed, well-nourished Head exam: PRESENT: atraumatic, normocephalic Eye exam: PRESENT: conjunctiva pink, EOMI, PERRLA Ear exam: PRESENT: normal external ear exam Mouth exam: PRESENT: moist, tongue midline Neck exam: PRESENT: full ROM. ABSENT: carotid bruit, JVD, lymphadenopathy, thyromegaly Respiratory exam: PRESENT: clear to auscultation nilda Cardiovascular exam: PRESENT: RRR, +S1, +S2. ABSENT: diastolic murmur, rubs, systolic murmur Pulses: PRESENT: normal dorsalis pedis pul, +2 pedal pulses bilateral Vascular exam: PRESENT: normal capillary refill GI/Abdominal exam: PRESENT: normal bowel sounds, soft. ABSENT: distended, guarding, mass, organolmegaly, rebound, tenderness Rectal exam: PRESENT: deferred Neurological exam: PRESENT: alert, awake, oriented to person, oriented to place , oriented to time, oriented to situation, CN II-XII grossly intact Psychiatric exam: PRESENT: appropriate affect, normal mood Skin exam: PRESENT: dry, intact, warm Results Laboratory Results: 09/17/17 08:45 09/17/17 09/17/17 09/17/17 08:45 08:45 08:45 WBC 6.9 RBC 3.42 L Hgb 10.2 L Hct 30.4 L MCV 89 MCH 29.9 MCHC 33.7 RDW 13.0 Plt Count 262 Ammonia < 8.7 L Lipase TSH 4.38 Free T4 1.09 09/17/17 08:45 WBC RBC Hgb Hct MCV MCH MCHC RDW Plt Count Ammonia Lipase 139.0 TSH Free T4 09/17/17 09/17/17 09/17/17 08:45 08:45 14:36 Creatine Kinase 138 H 111 CK-MB (CK-2) 4.75 H Troponin I < 0.012 09/17/17 14:36 Creatine Kinase CK-MB (CK-2) 3.96 Troponin I < 0.012 Impressions: Chest X-Ray 09/17/17 05:30 IMPRESSION: No acute cardiopulmonary findings. 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
[2017-09-17 18:09] LABS: APPEARANCE,URINE CLEAR; BILIRUBIN,URINE NEGATIVE (NEGATIVE); COLOR,URINE STRAW; GLUCOSE, URINE >=500 mg/dL (NEGATIVE); KETONES,URINE NEGATIVE (NEGATIVE); LEUKOCYTE ESTERASE,URINE NEGATIVE (NEGATIVE); NITRITE,URINE NEGATIVE (NEGATIVE); PROTEIN,URINE NEGATIVE (NEGATIVE); UROBILINOGEN,URINE NEGATIVE mg/dL (<2.0)
[2017-09-17] MEDS ORDERED: PEG 3350/NA SULF,BICARB,CL/KCL 4000 ML PO SCH (18:30)
[2017-09-17 21:07] LABS: ABSOLUTE BASOPHILS # (AUTO) 0.1 10^3/uL (0.0-0.2); ABSOLUTE EOSINOPHILS # (AUTO) 0.1 10^3/uL (0.0-0.6); ABSOLUTE LYMPHOCYTES (AUTO) 2.8 10^3/uL (0.5-4.7); ABSOLUTE MONOCYTES (AUTO) 0.5 10^3/uL (0.1-1.4); ABSOLUTE NEUT (AUTO) 5.3 10^3/uL (1.7-8.2); BASOPHILS % (AUTO) 0.7 % (0-2); EOSINOPHILS % (AUTO) 1.5 % (0-6); HEMATOCRIT 38.5 % (36.0-47.0); LYMPHOCYTES % (AUTO) 31.7 % (13-45); MEAN CORPUSCULAR HEMOGLOBIN 29.7 pg (27.0-33.4); MEAN CORPUSCULAR HGB CONC 34.3 g/dL (32.0-36.0); MEAN CORPUSCULAR VOLUME 87 fl (80-97); MONOCYTES % (AUTO) 5.3 % (3-13); PLATELET COUNT 267 10^3/uL (150-450); RED BLOOD COUNT 4.44 10^6/uL (3.72-5.28); RED CELL DISTRIBUTION WIDTH 13.9 % (11.5-14.0); SEGMENTED NEUTROPHILS % (AUTO) 60.8 % (42-78); TOTAL CELLS COUNTED % (AUTO) 100 %; WHITE BLOOD COUNT 8.7 10^3/uL (4.0-10.5)
[2017-09-17 21:09] LABS: HEMOGLOBIN 13.2 g/dL (12.0-15.5)
[2017-09-17 22:37] LABS: CREATINE KINASE MB 3.72 ng/mL (<4.55)
[2017-09-17 22:40] LABS: TROPONIN I < 0.012 ng/mL
[2017-09-18 07:30] LABS: ABSOLUTE BASOPHILS # (AUTO) 0.1 10^3/uL (0.0-0.2); ABSOLUTE EOSINOPHILS # (AUTO) 0.1 10^3/uL (0.0-0.6); ABSOLUTE LYMPHOCYTES (AUTO) 2.3 10^3/uL (0.5-4.7); ABSOLUTE MONOCYTES (AUTO) 0.4 10^3/uL (0.1-1.4); ABSOLUTE NEUT (AUTO) 3.6 10^3/uL (1.7-8.2); EOSINOPHILS % (AUTO) 2.1 % (0-6); HEMATOCRIT 37.3 % (36.0-47.0); HEMOGLOBIN 12.9 g/dL (12.0-15.5); LYMPHOCYTES % (AUTO) 35.4 % (13-45); MEAN CORPUSCULAR HEMOGLOBIN 29.8 pg (27.0-33.4); MEAN CORPUSCULAR HGB CONC 34.6 g/dL (32.0-36.0); MEAN CORPUSCULAR VOLUME 86 fl (80-97); MONOCYTES % (AUTO) 5.9 % (3-13); PLATELET COUNT 231 10^3/uL (150-450); RED BLOOD COUNT 4.34 10^6/uL (3.72-5.28); RED CELL DISTRIBUTION WIDTH 14.1 % (11.5-14.0); SEGMENTED NEUTROPHILS % (AUTO) 55.6 % (42-78); TOTAL CELLS COUNTED % (AUTO) 100 %; WHITE BLOOD COUNT 6.6 10^3/uL (4.0-10.5)
[2017-09-18 07:44] LABS: ALANINE AMINOTRANSFERASE 33 U/L (9-52); ALBUMIN 3.8 g/dL (3.5-5.0); ALKALINE PHOSPHATASE 93 U/L (38-126); ANION GAP 10 (5-19); ASPARTATE AMINO TRANSFERASE 22 U/L (14-36); BILIRUBIN,DIRECT 0.2 mg/dL (0.0-0.4); BILIRUBIN,TOTAL 0.6 mg/dL (0.2-1.3); BLOOD UREA NITROGEN 12 mg/dL (7-20); CALCIUM 9.5 mg/dL (8.4-10.2); CARBON DIOXIDE 22 mmol/L (22-30); CHLORIDE 107 mmol/L (98-107); CHOLESTEROL 140.06 mg/dL (0-200); GLUCOSE 240 mg/dL (75-110); POTASSIUM 4.6 mmol/L (3.6-5.0); SODIUM 139.3 mmol/L (137-145); TOTAL PROTEIN 6.1 g/dL (6.3-8.2); TRIGLYCERIDES 132 mg/dL (<150)
[2017-09-18 07:55] LABS: DIRECT LDL 58 mg/dL (<100)
[2017-09-18] MEDS ORDERED: NALOXONE HCL INJ/PF 0.4 MG/1 ML SDV ONE (08:24)
[2017-09-18] MEDS ORDERED: ONDANSETRON HCL INJ/PF 4 MG/2 ML SDV ONE (08:24)
[2017-09-18] MEDS ORDERED: DIPHENHYDRAMINE HCL 50 MG/ML VIAL ONE (08:24)
[2017-09-18] MEDS ORDERED: FENTANYL CITRATE INJ/PF 100 MCG/2 ML AMPUL ONE (08:25)
[2017-09-18] MEDS ORDERED: MIDAZOLAM 2 MG/2 ML INJ ONE (08:25)
[2017-09-18] MEDS ORDERED: EPINEPHRINE INJ 1 MG/10 ML DISP.SYRIN ONE (08:25)
[2017-09-18] MEDS ORDERED: GLUCAGON,HUMAN RECOMB 1 MG INJ ONE (08:25)
[2017-09-18] MEDS ORDERED: FLUMAZENIL INJ 0.5 MG/5 ML VIAL ONE (08:25)
[2017-09-18] MEDS: MIDAZOLAM 2 MG/2 ML INJ ONE ×3 (09:12→09:21)
--- NOTE | 2017-09-18 10:52 | Operative Report ---
Operative Report DATE OF SURGERY: 09/18/17 Operative Report: The risks, benefits and alternatives of the procedure including risks of bleeding, perforation requiring surgery are explained to the patient in detail and informed consent is obtained. Patient is taken to the endoscopy suite and placed in a left, lateral decubital position. Timeout was called. Conscious sedation medications are provided. A rectal examination is done which did not reveal any masses, tears or fissures. An Olympus videoscope was inserted into the patient's rectum. It is carefully advanced all the way to the cecum. Cecum was identified by the usual anatomical landmarks including the ileocecal valve as well as the appendiceal office. Photodocumentation is obtained. Prep is good. The scope was then sequentially pulled back via the various segments of the colon including the ascending colon, hepatic flexure, transverse colon, splenic flexure, descending colon finding to the rectosigmoid portions of the colon. Retroflexion maneuvers performed. PREOPERATIVE DIAGNOSIS: GI bleeding POSTOPERATIVE DIAGNOSIS: Diverticulosis. Internal hemorrhoids. No active bleeding seen. Small sessile polyp ablated in situ. Previous tattooed site was evaluated, no abnormalities noted. OPERATION: Colonoscopy with ablation SURGEON: DEION REBOLLEDO ANESTHESIA: Moderate Sedation - 4 mg of Versed, 50 mcg of fentanyl. Conscious sedation monitoring time 30 minutes. TISSUE REMOVED OR ALTERED: None. COMPLICATIONS: None. ESTIMATED BLOOD LOSS: None. INTRAOPERATIVE FINDINGS: As noted above. PROCEDURE: Patient tolerated the procedure well. No immediate postprocedure complications are noted. Resume regular diet. Resume regular activity level. Follow-up colonoscopy in 3-5 years No further bleeding, hemoglobin stable, if patient is able to tolerate diet, should be able to be discharged home.
--- NOTE | 2017-09-18 12:06 | PDOC DISCHARGE SUMMARY ---
General - Admit/Disc Date/PCP Admission Date/Primary Care Provider: 09/17/17 06:52 HALINA RAMIREZ MD Discharge Date: 09/18/17 - Discharge Diagnosis (1) Lower gastrointestinal bleed Is this a current diagnosis for this admission?: Yes (2) Type 2 diabetes mellitus Is this a current diagnosis for this admission?: Yes (3) Lower GI bleed Is this a current diagnosis for this admission?: Yes - Additional Information Resuscitation Status: Full Code Discharge Diet: Diabetic Discharge Activity: Activity As Tolerated Prescriptions: Aspirin [Aspirin 81 mg Chewable Tablet] 81 mg PO DAILY #90 pkg Home Medications: Ferrous Sulfate [Iron] 325 mg PO DAILY 09/17/17 Insulin Detemir [Levemir Flextouch] 20 unit SQ DAILY 09/17/17 Lisinopril [Prinivil 10 mg Tablet] 10 mg PO DAILY 09/17/17 Montelukast Sodium [Singulair 10 mg Tablet] 10 mg PO QHS 09/17/17 Multivitamin [Tab-A-Ginny (Multiple Vitamin) Tablet] 1 tab PO DAILY 09/17/17 [place]-3 Fatty Acids/Fish Oil [Fish Oil 1,000 mg Capsule] 1 cap PO DAILY Pravastatin Sodium [Pravachol] 20 mg PO DAILY 09/17/17 Ubidecarenone/Vitamin E Mixed [Coq10 Sg 100 Softgel] 1 cap PO DAILY 09/17/17 Vitamin B Complex [B Complex] 1 tab PO DAILY 09/17/17 Vitamin E 1,000 unit PO DAILY 09/17/17 Aspirin [Aspirin 81 mg Chewable Tablet] 81 mg PO DAILY #90 pkg 09/18/17 History of Present Illness History of Present Illness: Patient is 62-year-old female, she is well-known to me, she has type 2 diabetes mellitus she came to the emergency room for evaluation of passage of li blood per rectum. She noticed the blood last night but does increase in quantity and frequency. She has no definitive abdominal pain. She was evaluated for abdominal pain towards the end of last year at that time she had a CAT scan of the abdomen and pelvis with contrast, it was negative for any acute pathology other than a small hernia, this blood loss is most likely a diverticular bleed, she is known to have a history of diverticulosis. Because of the profuse constant rectal bleed she would need blood transfusion and consultation requested from bale breaker operator for colonoscopy. Hospital Course Hospital Course: She was admitted for the management of lower GI bleed, she was transfused with packed red blood cells, she was seen by bale breaker operator, Dr. Yang she had a colonoscopy this morning, there was no active bleeding found. She was transfused with 2 units of packed red blood cells. Posttransfusion hemoglobin 13.2. Patient is no longer bleeding, she be discharged home today Physical Exam Vital Signs: Temp Pulse Resp BP Pulse Ox 97.7 F 86 17 118/66 98 09/18/17 10:51 09/18/17 10:51 09/18/17 10:51 09/18/17 10:51 09/18/17 10:51 Intake & Output 09/17/17 09/18/17 09/19/17 06:59 06:59 06:59 Intake Total 700 400 Output Total 300 Balance 400 400 General appearance: PRESENT: no acute distress, well-developed, well-nourished Head exam: PRESENT: atraumatic, normocephalic Eye exam: PRESENT: conjunctiva pink, EOMI, PERRLA Ear exam: PRESENT: normal external ear exam Mouth exam: PRESENT: moist, tongue midline Neck exam: PRESENT: full ROM Respiratory exam: PRESENT: clear to auscultation nilda Cardiovascular exam: PRESENT: RRR, +S1, +S2 Pulses: PRESENT: normal dorsalis pedis pul, +2 pedal pulses bilateral Vascular exam: PRESENT: normal capillary refill GI/Abdominal exam: PRESENT: normal bowel sounds, soft Rectal exam: PRESENT: deferred Neurological exam: PRESENT: alert, awake, oriented to person, oriented to place , oriented to time, oriented to situation, CN II-XII grossly intact Psychiatric exam: PRESENT: appropriate affect, normal mood Skin exam: PRESENT: dry, intact, warm Results Laboratory Results: 09/18/17 07:09 09/18/17 07:09 09/17/17 09/17/17 09/18/17 17:44 20:55 07:09 WBC 8.7 6.6 RBC 4.44 4.34 Hgb 13.2 D 12.9 Hct 38.5 37.3 MCV 87 86 MCH 29.7 29.8 MCHC 34.3 34.6 RDW 13.9 14.1 H Plt Count 267 231 Seg Neutrophils % 60.8 55.6 Lymphocytes % 31.7 35.4 Monocytes % 5.3 5.9 Eosinophils % 1.5 2.1 Basophils % 0.7 1.0 Absolute Neutrophils 5.3 3.6 Absolute Lymphocytes 2.8 2.3 Absolute Monocytes 0.5 0.4 Absolute Eosinophils 0.1 0.1 Absolute Basophils 0.1 0.1 Sodium Potassium Chloride Carbon Dioxide Anion Gap BUN Creatinine Est GFR ( Amer) Est GFR (Non-Af Amer) Glucose Calcium Total Bilirubin AST ALT Alkaline Phosphatase Total Protein Albumin Triglycerides Cholesterol LDL Cholesterol Direct VLDL Cholesterol HDL Cholesterol Urine Color STRAW Urine Appearance CLEAR Urine pH 5.0 Ur Specific [place] 1.010 Urine Protein NEGATIVE Urine Glucose (UA) >=500 H Urine Ketones NEGATIVE Urine Blood NEGATIVE Urine Nitrite NEGATIVE Ur Leukocyte Esterase NEGATIVE Urine WBC (Auto) 1 09/18/17 07:09 WBC RBC Hgb Hct MCV MCH MCHC RDW Plt Count Seg Neutrophils % Lymphocytes % Monocytes % Eosinophils % Basophils % Absolute Neutrophils Absolute Lymphocytes Absolute Monocytes Absolute Eosinophils Absolute Basophils Sodium 139.3 Potassium 4.6 Chloride 107 Carbon Dioxide 22 Anion Gap 10 BUN 12 Creatinine 0.47 L Est GFR ( Amer) > 60 Est GFR (Non-Af Amer) > 60 Glucose 240 H Calcium 9.5 Total Bilirubin 0.6 AST 22 ALT 33 Alkaline Phosphatase 93 Total Protein 6.1 L Albumin 3.8 Triglycerides 132 Cholesterol 140.06 LDL Cholesterol Direct 58 VLDL Cholesterol 26.0 HDL Cholesterol 66 Urine Color Urine Appearance Urine pH Ur Specific [place] Urine Protein Urine Glucose (UA) Urine Ketones Urine Blood Urine Nitrite Ur Leukocyte Esterase Urine WBC (Auto) 09/17/17 09/17/17 09/17/17 08:45 08:45 14:36 Creatine Kinase 138 H 111 CK-MB (CK-2) 4.75 H Troponin I < 0.012 09/17/17 09/17/17 09/17/17 14:36 20:55 20:55 Creatine Kinase 111 CK-MB (CK-2) 3.96 3.72 Troponin I < 0.012 < 0.012 Impressions: Chest X-Ray 09/17/17 05:30 IMPRESSION: No acute cardiopulmonary findings. 2011 [employer]- All Rights Reserved
[2017-09-18] MEDS: INFLUENZA ADLT QUAD (36MOS+) 2017-18 VAC 0.5 ML SYR IM PRN (12:08)
[2017-09-18 12:40] VITALS: BP 138/68
== END 2017-09-18 13:15 | disposition home or self-care (01) | DRG 379 ==
LOC: ER 04:30 → UNDOADMIN 06:25 → EH 06:25 → UNDOADMIN 06:51 → EH 06:51 → UNDOADMIN 06:52 → EH 06:52 → UNDOADMIN 08:09 → EH 08:09 → 2S 09-18 10:33
PROVIDERS: ADMIT Internal Medicine; ATTEND Internal Medicine
PROC: 30233P1 Transfusion of Nonautologous Frozen Red Cells into Peripheral Vein, Percutaneous Approach (ICD-10-PCS; 2017-09-17)
PROC: 0D5M8ZZ Destruction of Descending Colon, Via Natural or Artificial Opening Endoscopic (ICD-10-PCS; principal; 2017-09-18 08:00)
DX: K57.31 Diverticulosis of large intestine without perforation or abscess with bleeding (principal); E11.42 Type 2 diabetes mellitus with diabetic polyneuropathy; K46.9 Unspecified abdominal hernia without obstruction or gangrene; I10 Essential (primary) hypertension; M16.12 Unilateral primary osteoarthritis, left hip; M19.042 Primary osteoarthritis, left hand; M19.041 Primary osteoarthritis, right hand; F32.9 Major depressive disorder, single episode, unspecified; D64.9 Anemia, unspecified; K64.8 Other hemorrhoids; Z79.899 Other long term (current) drug therapy; Z79.4 Long term (current) use of insulin; Z79.82 Long term (current) use of aspirin; Z86.010 Personal history of colon polyps; Z88.8 Allergy status to other drugs, medicaments and biological substances; Z98.84 Bariatric surgery status; Z90.49 Acquired absence of other specified parts of digestive tract; Z80.0 Family history of malignant neoplasm of digestive organs
CPT/HCPCS: 36415; 36430; 45385; 71045; 80048; 80053; 80061; 80076; 81001; 82140; 82272; 82550; 82553; 82962; 83036; 83690; 84439; 84443; 84484; 85025; 85027; 85610; 85730; 86850; 86900; 86901; 86920; 90686; 93005; 93010; 96360; 99285; J0171; J1200; J1610; J1815; J2250; J2310; J2405; J3010; J3490; J7030; P9016

== ENCOUNTER 2017-09-18 21:39 | Inpatient (IN) | payer BC ==
--- NOTE | 2017-09-18 22:00 | ER Document Report ---
ED General - General Stated Complaint: BLOOD IN STOOL Time Seen by Provider: 09/18/17 21:43 Mode of Arrival: Ambulatory Information source: Patient Notes: This is a 62-year-old female with a history of diabetes and recent blood in stool status post colonoscopy this morning (Dr. Yang) who presents to the emergency room with a large bloody bowel movement. Patient denies any significant abdominal pain. TRAVEL OUTSIDE OF THE [place] IN LAST 30 DAYS: No - HPI Onset: Just prior to arrival Onset/Duration: Gradual Quality of pain: No pain Severity: None Pain Level: Denies Associated symptoms: denies: Chest pain, Fever, Shortness of breath Exacerbated by: Denies Relieved by: Denies Similar symptoms previously: Yes Recently seen / treated by doctor: Yes - Related Data Allergies/Adverse Reactions: bismuth subsalicylate [From Pepto-Bismol] Allergy (Mild, Verified 09/03/16 08:43 ) NAUSEA/VOMITTING micronase Allergy (Mild, Uncoded 09/03/16 08:43) RASH Past Medical History - General Information source: Patient - Social History Smoking Status: Never Smoker Cigarette use (# per day): No Chew tobacco use (# tins/day): No Smoking Education Provided: No Frequency of alcohol use: None Drug Abuse: None Lives with: Alone Family History: Reviewed & Not Pertinent Patient has suicidal ideation: No Patient has homicidal ideation: No - Past Medical History Cardiac Medical History: Reports: Hx Hypertension Denies: Hx Coronary Artery Disease, Hx Heart Attack Pulmonary Medical History: Denies: Hx Asthma, Hx Bronchitis, Hx COPD, Hx Pneumonia Neurological Medical History: Denies: Hx Cerebrovascular Accident, Hx Seizures Endocrine Medical History: Reports: Hx Diabetes Mellitus Type 2 Renal/ Medical History: Denies: Hx Peritoneal Dialysis Musculoskeltal Medical History: Reports Hx Arthritis - LT HIP,HANDS,FINGERS Psychiatric Medical History: Reports: Hx Depression Past Surgical History: Reports: Hx Abdominal Surgery - gastric bypass-2004, Hx Hysterectomy - Immunizations Hx Diphtheria, Pertussis, Tetanus Vaccination: Yes Hx Pneumococcal Vaccination: 06/15/16 Review of Systems - Review of Systems Constitutional: denies: Chills, Fever EENT: No symptoms reported Cardiovascular: No symptoms reported Respiratory: No symptoms reported Gastrointestinal: See HPI Genitourinary: No symptoms reported Female Genitourinary: No symptoms reported Musculoskeletal: No symptoms reported Skin: No symptoms reported Hematologic/Lymphatic: No symptoms reported Neurological/Psychological: No symptoms reported Physical Exam - Vital signs Vitals: Temp Pulse Resp BP Pulse Ox 98.4 F 87 18 163/80 H 96 09/18/17 21:43 09/18/17 21:43 09/18/17 21:43 09/18/17 21:43 09/18/17 21:43 Notes: Physical exam: GENERAL: 62-year-old female, alert and oriented 3, no acute distress HEAD: Atraumatic, normocephalic. EYES: Pupils equal round and reactive to light, extraocular movements intact, sclera anicteric, conjunctiva are normal. ENT: TMs normal, nares patent, oropharynx clear without exudates. Moist mucous membranes. NECK: Normal range of motion, supple without obvious mass or JVD. LUNGS: Breath sounds clear to auscultation bilaterally and equal. No wheezes rales or rhonchi. HEART: Regular rate and rhythm without murmurs, rubs or gallops. ABDOMEN: Soft, normoactive bowel sounds. No tenderness to palpation. No guarding, no rebound. No masses appreciated. Rectal: No gross bleeding, dried blood around rectum. There is some tenderness around the anus. EXTREMITIES: Normal range of motion, no pitting or edema. No clubbing or cyanosis. NEUROLOGICAL: Cranial nerves II through XII grossly intact. Normal speech, moving all extremities. PSYCH: Normal mood, normal affect. SKIN: Warm, Dry, normal turgor, no rashes or lesions noted. Course - Re-evaluation Re-evalutation: 09/19/17 01:[address] case with both Dr. Yang and Dr. Iverson. Plan will be to admit to Dr. Iverson service and follow crits. - Vital Signs Vital signs: Temp Pulse Resp BP Pulse Ox 98.3 F 84 17 131/74 H 94 09/18/17 23:44 09/18/17 23:44 09/19/17 01:03 09/19/17 01:03 09/19/17 01:03 - Laboratory Result Diagrams: 09/18/17 22:30 09/18/17 22:30 Laboratory results interpreted by me: 09/18/17 09/18/17 22:30 22:30 Hgb 11.2 L Hct 32.5 L Sodium 136.0 L Creatinine 0.44 L Glucose 315 H Total Protein 5.3 L Albumin 3.2 L Discharge - Discharge Clinical Impression: GI bleed Condition: Stable Disposition: ADMITTED INPATIENT Admitting Provider: [facility] Admitted: Telemetry
[2017-09-18 22:44] LABS: ABSOLUTE EOSINOPHILS # (AUTO) 0.1 10^3/uL (0.0-0.6); ABSOLUTE LYMPHOCYTES (AUTO) 1.9 10^3/uL (0.5-4.7); ABSOLUTE MONOCYTES (AUTO) 0.4 10^3/uL (0.1-1.4); ABSOLUTE NEUT (AUTO) 3.9 10^3/uL (1.7-8.2); BASOPHILS % (AUTO) 0.7 % (0-2); EOSINOPHILS % (AUTO) 1.8 % (0-6); HEMATOCRIT 32.5 % (36.0-47.0); HEMOGLOBIN 11.2 g/dL (12.0-15.5); LYMPHOCYTES % (AUTO) 29.7 % (13-45); MEAN CORPUSCULAR HGB CONC 34.6 g/dL (32.0-36.0); MEAN CORPUSCULAR VOLUME 87 fl (80-97); PLATELET COUNT 223 10^3/uL (150-450); RED BLOOD COUNT 3.75 10^6/uL (3.72-5.28); RED CELL DISTRIBUTION WIDTH 13.7 % (11.5-14.0); SEGMENTED NEUTROPHILS % (AUTO) 60.8 % (42-78); TOTAL CELLS COUNTED % (AUTO) 100 %; WHITE BLOOD COUNT 6.4 10^3/uL (4.0-10.5)
[2017-09-18 22:53] LABS: INTERNATIONAL RATION (INR) 0.86; PROTHROMBIN TIME 12.4 SEC (11.4-15.4)
[2017-09-18 23:00] LABS: ALANINE AMINOTRANSFERASE 29 U/L (9-52); ALBUMIN 3.2 g/dL (3.5-5.0); ALKALINE PHOSPHATASE 87 U/L (38-126); ANION GAP 8 (5-19); ASPARTATE AMINO TRANSFERASE 19 U/L (14-36); BILIRUBIN,DIRECT 0.2 mg/dL (0.0-0.4); BILIRUBIN,TOTAL 0.2 mg/dL (0.2-1.3); BLOOD UREA NITROGEN 8 mg/dL (7-20); CALCIUM 8.8 mg/dL (8.4-10.2); CARBON DIOXIDE 22 mmol/L (22-30); CHLORIDE 106 mmol/L (98-107); GLUCOSE 315 mg/dL (75-110); TOTAL PROTEIN 5.3 g/dL (6.3-8.2)
[2017-09-19] MEDS ORDERED: DEXTROSE 50%-WATER SYRINGE 25 GM/50 ML DOSE IV PRN (04:19)
[2017-09-19] MEDS ORDERED: DEXTROSE 40% GEL 15 GM TUBE X 2 PO PRN (04:19)
[2017-09-19] MEDS ORDERED: DEXTROSE 50%-WATER SYRINGE 12.5 GM/25 ML DOSE IV PRN (04:19)
[2017-09-19] MEDS ORDERED: DEXTROSE 40% GEL 15 GM TUBE PO PRN ×3 (04:19→12:25)
[2017-09-19] MEDS ORDERED: GLUCAGON,HUMAN RECOMB 1 MG INJ IM PRN ×2 (04:19→12:25)
[2017-09-19 07:20] LABS: ABSOLUTE EOSINOPHILS # (AUTO) 0.1 10^3/uL (0.0-0.6); ABSOLUTE LYMPHOCYTES (AUTO) 2.5 10^3/uL (0.5-4.7); ABSOLUTE MONOCYTES (AUTO) 0.4 10^3/uL (0.1-1.4); ABSOLUTE NEUT (AUTO) 2.3 10^3/uL (1.7-8.2); BASOPHILS % (AUTO) 0.8 % (0-2); EOSINOPHILS % (AUTO) 2.4 % (0-6); HEMATOCRIT 31.7 % (36.0-47.0); HEMOGLOBIN 10.9 g/dL (12.0-15.5); LYMPHOCYTES % (AUTO) 45.7 % (13-45); MEAN CORPUSCULAR HEMOGLOBIN 29.8 pg (27.0-33.4); MEAN CORPUSCULAR HGB CONC 34.5 g/dL (32.0-36.0); MEAN CORPUSCULAR VOLUME 86 fl (80-97); MONOCYTES % (AUTO) 7.7 % (3-13); PLATELET COUNT 219 10^3/uL (150-450); RED BLOOD COUNT 3.66 10^6/uL (3.72-5.28); RED CELL DISTRIBUTION WIDTH 13.6 % (11.5-14.0); SEGMENTED NEUTROPHILS % (AUTO) 43.4 % (42-78); TOTAL CELLS COUNTED % (AUTO) 100 %; WHITE BLOOD COUNT 5.4 10^3/uL (4.0-10.5)
[2017-09-19 07:40] LABS: ANION GAP 7 (5-19); BLOOD UREA NITROGEN 7 mg/dL (7-20); CALCIUM 9.5 mg/dL (8.4-10.2); CARBON DIOXIDE 28 mmol/L (22-30); CHLORIDE 105 mmol/L (98-107); GLUCOSE 229 mg/dL (75-110); POTASSIUM 3.9 mmol/L (3.6-5.0); SODIUM 139.6 mmol/L (137-145)
[2017-09-19] MEDS: FERROUS SULFATE 325 MG TABLET PO SCH (09:49)
[2017-09-19] MEDS: OMEGA-3 ACID ETHYL ESTERS 1 GM CAPSULE PO SCH (09:50)
[2017-09-19] MEDS: MULTIVITAMIN TABLET PO SCH (09:50)
[2017-09-19] MEDS: LISINOPRIL 5 MG TABLET PO SCH (09:51)
[2017-09-19] MEDS: INSULIN LISPRO 100 UNIT/ML 3 ML VIAL SUBCUT PRN ×4 (09:52→22:27)
[2017-09-19] MEDS: INSULIN DETEMIR 100 UNIT/ML 3 ML PEN SUBCUT SCH (09:55)
[2017-09-19] MEDS ORDERED: VITAMIN E MIXED PO SCH (10:00)
[2017-09-19] MEDS ORDERED: (PENDING PHARMACY ID) (Vitamin E [Vitamin E] 1,000 UNIT) PO SCH ×2 (10:00→10:30)
[2017-09-19] MEDS ORDERED: (PENDING PHARMACY ID) (Omega-3 Fatty Acids/Fish Oil [Fish Oil 1,000 Mg Capsule] 1 CAP) PO SCH (10:00)
[2017-09-19] MEDS ORDERED: UBIDECARENONE PO SCH (10:00)
[2017-09-19] MEDS ORDERED: (PENDING PHARMACY ID) (Vitamin B Complex [B Complex] 1 TAB) PO SCH (10:00)
[2017-09-19] MEDS ORDERED: FERROUS SULFATE 325 MG TABLET PO SCH ×2 (10:00→11:00)
[2017-09-19] MEDS ORDERED: ASPIRIN 81 MG TABLET, CHEWABLE PO SCH (10:00)
[2017-09-19] MEDS ORDERED: (PENDING PHARMACY ID) (Vitamin B Complex [B Complex] 1 CAP) PO SCH (10:30)
[2017-09-19] MEDS ORDERED: UBIDECARENONE 400 MG PO SCH (10:30)
[2017-09-19] MEDS ORDERED: (PENDING PHARMACY ID) (Omega-3 Fatty Acids [Omega-3] 1,000 MG) PO SCH (10:30)
[2017-09-19] MEDS ORDERED: (PENDING PHARMACY ID) (Cholecalciferol (Vitamin D3) [Vitamin D3] 1,000 UNIT) PO SCH (10:30)
[2017-09-19] MEDS ORDERED: MULTIVITAMIN TABLET PO SCH (10:30)
[2017-09-19] MEDS ORDERED: INSULIN LISPRO 5 UNIT SQ SCH (10:30)
[2017-09-19] MEDS ORDERED: INSULIN DETEMIR 100 UNIT/ML 3 ML PEN SUBCUT SCH (10:30)
[2017-09-19] MEDS ORDERED: METFORMIN HCL 500 MG TABLET PO SCH (11:00)
--- NOTE | 2017-09-19 12:02 | PDOC PROGRESS REPORT ---
Subjective Progress Note for:: 09/19/17 Subjective:: patient had been discharged earlier in the day, and re-presented later on last evening with rectal bleeding, again bright red blood per rectum patient had Hgb in the ED at 11.2 this am is stable at 10.9 had colonoscopy yesterday small polyp ablated significant diverticulosis and internal hemorrhoids are noted stable will need to be admitted, watch H/H and any clinical bleeding, patient could have had residual diverticular bleeding ? possible hemorrhoids spoke with Dr Delgado would see if any further bleeding , observation required if further bleeding, consider bleeding scan Reason For Visit: GI BLEED Physical Exam Vital Signs: Temp Pulse Resp BP Pulse Ox 97.6 F 84 18 111/71 98 09/19/17 09:25 09/18/17 23:44 09/19/17 10:01 09/19/17 10:00 09/19/17 10:01 Intake & Output 09/18/17 09/19/17 09/20/17 06:59 06:59 06:59 Intake Total 0 Balance 0 Weight 75 kg General appearance: PRESENT: no acute distress, well-developed, well-nourished Head exam: PRESENT: atraumatic, normocephalic Eye exam: PRESENT: EOMI, PERRLA. ABSENT: nystagmus, periorbital swelling, scleral icterus Mouth exam: PRESENT: moist Throat exam: ABSENT: tonsillar exudate, tonsillogmegaly Neck exam: ABSENT: meningismus, tenderness, thyromegaly Respiratory exam: PRESENT: symmetrical, unlabored. ABSENT: tachypnea, wheezes Cardiovascular exam: PRESENT: RRR, +S1, +S2 GI/Abdominal exam: PRESENT: soft. ABSENT: rebound, rigid, tenderness Extremities exam: ABSENT: joint swelling Musculoskeletal exam: PRESENT: full ROM Neurological exam: PRESENT: oriented to time, oriented to situation, reflexes normal, CN II-XII grossly intact Psychiatric exam: PRESENT: appropriate affect Skin exam: PRESENT: normal color. ABSENT: mottled, pallor, urticaria, vesicles Results Laboratory Results: 09/19/17 07:00 09/19/17 07:00 09/19/17 09/19/17 07:00 07:00 WBC 5.4 RBC 3.66 L Hgb 10.9 L Hct 31.7 L MCV 86 MCH 29.8 MCHC 34.5 RDW 13.6 Plt Count 219 Seg Neutrophils % 43.4 Lymphocytes % 45.7 H Monocytes % 7.7 Eosinophils % 2.4 Basophils % 0.8 Absolute Neutrophils 2.3 Absolute Lymphocytes 2.5 Absolute Monocytes 0.4 Absolute Eosinophils 0.1 Absolute Basophils 0.0 Sodium 139.6 Potassium 3.9 Chloride 105 Carbon Dioxide 28 Anion Gap 7 BUN 7 Creatinine 0.48 L Est GFR ( Amer) > 60 Est GFR (Non-Af Amer) > 60 Glucose 229 H Calcium 9.5 Assessment & Plan - Diagnosis (1) GI bleed Plan: colonoscopy done yesterday has both right and left sided diverticulosis may have had a residual bleeding stable watch clinically, check H/H do not suspect post polypectomy bleeding since the polyp was ablated rather than snared clear liquid diet, adv as tolerated, watch for any further bleeding bleeding scan may be needed - Time Time Spent with patient: 15-24 minutes
[2017-09-19] MEDS ORDERED: DEXTROSE 50%-WATER 25 GM/50 ML DISP.SYRIN IV PRN ×2 (12:25)
[2017-09-19] MEDS ORDERED: INSULIN LISPRO 100 UNIT/ML 3 ML VIAL SUBCUT PRN (12:25)
[2017-09-19] MEDS: GABAPENTIN 300 MG CAPSULE PO SCH ×2 (13:24→22:06)
--- NOTE | 2017-09-19 13:34 | PDOC H&P ---
History of Present Illness Admission Date/PCP: 09/19/17 00:56 HALINA RAMIREZ MD History of Present Illness: JOSUÉ HICKS is a 62 year old female, She was just discharged from this hospital yesterday when she presented with lower GI bleed, she was transfused with 2 units of packed red blood cells the last time she was admitted and she was seen by the border patrol officer,DR Yang she underwent colonoscopy, she was found to have diverticulosis and internal hemorrhoids but no active bleeding was identified. She came to the emergency room last night because she said she had an episode of rectal bleed, there is no active bleeding ongoing at this time but because she stated that she has rectal bleed she is been admitted for close monitoring and if needed she may need a bleeding scan if active bleeding ensues Past Medical History Cardiac Medical History: Reports: Hypertension Endocrine Medical History: Reports: Diabetes Mellitus Type 2 Musculoskeltal Medical History: Reports: Arthritis - LT HIP,HANDS,FINGERS Psychiatric Medical History: Reports: Depression Hematology: Reports: Anemia Past Surgical History Past Surgical History: Reports: Hysterectomy Social History Lives with: Alone Smoking Status: Never Smoker Frequency of Alcohol Use: None Hx Recreational Drug Use: No Drugs: None Hx Prescription Drug Abuse: No Family History Family History: Reviewed & Not Pertinent Parental Family History Reviewed: Yes Children Family History Reviewed: Yes Sibling(s) Family History Reviewed.: Yes Medication/Allergy Home Medications: Aspirin [Aspirin 81 mg Chewable Tablet] 81 mg PO DAILY 09/19/17 Cholecalciferol (Vitamin D3) [Vitamin D3] 1,000 unit PO DAILY 09/19/17 Ferrous Sulfate [Feosol 325 mg Tablet] 325 mg PO Q2D 09/19/17 Insulin Detemir [Levemir Flextouch] 20 units SQ DAILY 09/19/17 Insulin Lispro [Humalog Kwikpen U-100] 5 units SQ .SLIDING SCALE 09/19/17 Lisinopril [Prinivil 5 mg Tablet] 5 mg PO QHS 09/19/17 Metformin HCl [Glucophage 500 mg Tablet] 500 mg PO BIDBS 09/19/17 Multivitamin [Tab-A-Ginny (Multiple Vitamin) Tablet] 1 tab PO DAILY 09/19/17 [place]-3 Fatty Acids [[place]-3] 1,000 mg PO DAILY 09/19/17 Pravastatin Sodium [Pravachol] 20 mg PO QHS 09/19/17 Ubidecarenone [Coq-10] 400 mg PO DAILY 09/19/17 Vitamin B Complex [B Complex] 1 cap PO DAILY 09/19/17 Vitamin E 1,000 unit PO DAILY 09/19/17 Allergies/Adverse Reactions: bismuth subsalicylate [From Pepto-Bismol] Allergy (Mild, Verified 09/03/16 08:43 ) NAUSEA/VOMITTING micronase Allergy (Mild, Uncoded 09/03/16 08:43) RASH Review of Systems Constitutional: ABSENT: chills, fever(s), headache(s), weight gain, weight loss Eyes: ABSENT: visual disturbances Ears: ABSENT: hearing changes Cardiovascular: ABSENT: chest pain, dyspnea on exertion, edema, orthropnea, palpitations Respiratory: ABSENT: cough, hemoptysis Gastrointestinal: PRESENT: hematochezia Genitourinary: ABSENT: dysuria, hematuria Musculoskeletal: ABSENT: joint swelling Integumentary: ABSENT: rash, wounds Neurological: ABSENT: abnormal gait, abnormal speech, confusion, dizziness, focal weakness, syncope Psychiatric: ABSENT: anxiety, depression, homidical ideation, suicidal ideation Endocrine: ABSENT: cold intolerance, heat intolerance, menstrual abnormalities, polydipsia, polyuria Hematologic/Lymphatic: ABSENT: easy bleeding, easy bruising, lymphadenopathy Physical Exam Vital Signs: Temp Pulse Resp BP Pulse Ox 97.6 F 84 18 111/71 98 09/19/17 09:25 09/18/17 23:44 09/19/17 10:01 09/19/17 10:00 09/19/17 10:01 Intake & Output 09/18/17 09/19/17 09/20/17 06:59 06:59 06:59 Intake Total 0 Balance 0 Weight 75 kg General appearance: PRESENT: no acute distress, well-developed, well-nourished Head exam: PRESENT: atraumatic, normocephalic Eye exam: PRESENT: conjunctiva pink, EOMI, PERRLA Ear exam: PRESENT: normal external ear exam Mouth exam: PRESENT: moist, tongue midline Neck exam: PRESENT: full ROM Respiratory exam: PRESENT: clear to auscultation nilda Cardiovascular exam: PRESENT: RRR, +S1, +S2 Pulses: PRESENT: normal dorsalis pedis pul, +2 pedal pulses bilateral Vascular exam: PRESENT: normal capillary refill GI/Abdominal exam: PRESENT: normal bowel sounds, soft Rectal exam: PRESENT: deferred Neurological exam: PRESENT: alert, awake, oriented to person, oriented to place , oriented to time, oriented to situation, CN II-XII grossly intact Psychiatric exam: PRESENT: appropriate affect, normal mood Skin exam: PRESENT: dry, intact, warm Results Laboratory Results: 09/19/17 07:00 09/19/17 07:00 09/19/17 09/19/17 07:00 07:00 WBC 5.4 RBC 3.66 L Hgb 10.9 L Hct 31.7 L MCV 86 MCH 29.8 MCHC 34.5 RDW 13.6 Plt Count 219 Seg Neutrophils % 43.4 Lymphocytes % 45.7 H Monocytes % 7.7 Eosinophils % 2.4 Basophils % 0.8 Absolute Neutrophils 2.3 Absolute Lymphocytes 2.5 Absolute Monocytes 0.4 Absolute Eosinophils 0.1 Absolute Basophils 0.0 Sodium 139.6 Potassium 3.9 Chloride 105 Carbon Dioxide 28 Anion Gap 7 BUN 7 Creatinine 0.48 L Est GFR ( Amer) > 60 Est GFR (Non-Af Amer) > 60 Glucose 229 H Calcium 9.5 Assessment & Plan - Diagnosis (1) Hematochezia Is this a current diagnosis for this admission?: Yes Plan: Patient is admitted for observation and for close monitoring, if Bleeding should become active she will require a bleeding scan to definitively localize the source of bleed. It was assumed the last time she was admitted that she probably bled from diverticulosis but on colonoscopy there was no active bleeding identified
[2017-09-19 15:42] LABS: APPEARANCE,URINE SLIGHTLY-CLOUDY; BILIRUBIN,URINE NEGATIVE (NEGATIVE); COLOR,URINE YELLOW; GLUCOSE, URINE >=500 mg/dL (NEGATIVE); KETONES,URINE NEGATIVE (NEGATIVE); LEUKOCYTE ESTERASE,URINE NEGATIVE (NEGATIVE); NITRITE,URINE NEGATIVE (NEGATIVE); PROTEIN,URINE NEGATIVE (NEGATIVE); URINE SPECIFIC GRAVITY 1.027; UROBILINOGEN,URINE NEGATIVE mg/dL (<2.0)
[2017-09-19 16:17] LABS: UR PRO/CREAT RATIO RESULT 0.1 mg/mg (0.0-0.2); URINE CREATININE 84.1 mg/dL (15-278); URINE PROTEIN 8.1 mg/dL (<12)
[2017-09-19] MEDS ORDERED: LISINOPRIL 5 MG TABLET PO SCH (22:00)
[2017-09-19] MEDS: ATORVASTATIN CALCIUM 10 MG TABLET PO SCH (22:06)
[2017-09-20] MEDS: GABAPENTIN 300 MG CAPSULE PO SCH ×3 (06:28→21:19)
[2017-09-20] MEDS: INSULIN LISPRO 100 UNIT/ML 3 ML VIAL SUBCUT PRN ×4 (08:08→22:17)
[2017-09-20] MEDS: LISINOPRIL 5 MG TABLET PO SCH (09:43)
[2017-09-20] MEDS: MULTIVIT-STRESS FORMULA/ZINC TABLET PO SCH (09:43)
[2017-09-20] MEDS: MULTIVITAMIN TABLET PO SCH (09:43)
[2017-09-20] MEDS: INSULIN DETEMIR 100 UNIT/ML 3 ML PEN SUBCUT SCH (09:43)
[2017-09-20] MEDS: OMEGA-3 ACID ETHYL ESTERS 1 GM CAPSULE PO SCH (09:43)
[2017-09-20] MEDS: FERROUS SULFATE 325 MG TABLET PO SCH (09:44)
[2017-09-20] MEDS: VITAMIN E (DL, ACETATE) 400 UNIT CAPSULE PO SCH (09:44)
[2017-09-20 11:48] LABS: ABSOLUTE BASOPHILS # (AUTO) 0.1 10^3/uL (0.0-0.2); ABSOLUTE EOSINOPHILS # (AUTO) 0.1 10^3/uL (0.0-0.6); ABSOLUTE LYMPHOCYTES (AUTO) 2.4 10^3/uL (0.5-4.7); ABSOLUTE MONOCYTES (AUTO) 0.5 10^3/uL (0.1-1.4); ABSOLUTE NEUT (AUTO) 4.9 10^3/uL (1.7-8.2); BASOPHILS % (AUTO) 0.8 % (0-2); EOSINOPHILS % (AUTO) 1.8 % (0-6); MEAN CORPUSCULAR HEMOGLOBIN 29.2 pg (27.0-33.4); MEAN CORPUSCULAR HGB CONC 33.3 g/dL (32.0-36.0); MEAN CORPUSCULAR VOLUME 88 fl (80-97); MONOCYTES % (AUTO) 6.4 % (3-13); PLATELET COUNT 290 10^3/uL (150-450); RED CELL DISTRIBUTION WIDTH 13.6 % (11.5-14.0); TOTAL CELLS COUNTED % (AUTO) 100 %; WHITE BLOOD COUNT 8.1 10^3/uL (4.0-10.5)
--- NOTE | 2017-09-20 11:56 | PDOC PROGRESS REPORT ---
Subjective Progress Note for:: 09/20/17 Subjective:: Was admitted for possible GI bleed status post colonoscopy Is currently doing well She has denied any chest pain denied any shortness of the breath Patient's denied any abdominal pain Patient hemoglobin is all stable Reason For Visit: GI BLEED Physical Exam Vital Signs: Temp Pulse Resp BP Pulse Ox 98.8 F 82 16 110/56 L 100 09/20/17 08:43 09/20/17 08:43 09/20/17 08:43 09/20/17 08:43 09/20/17 08:43 General appearance: PRESENT: no acute distress, well-developed, well-nourished Head exam: PRESENT: atraumatic, normocephalic Eye exam: PRESENT: conjunctiva pink, EOMI, PERRLA. ABSENT: scleral icterus Ear exam: PRESENT: normal external ear exam Mouth exam: PRESENT: moist, tongue midline Neck exam: PRESENT: full ROM. ABSENT: carotid bruit, JVD, lymphadenopathy, thyromegaly Respiratory exam: PRESENT: clear to auscultation nilda Cardiovascular exam: PRESENT: RRR. ABSENT: diastolic murmur, rubs, systolic murmur Pulses: PRESENT: normal dorsalis pedis pul, +2 pedal pulses bilateral Vascular exam: PRESENT: normal capillary refill GI/Abdominal exam: PRESENT: normal bowel sounds, soft. ABSENT: distended, guarding, mass, organolmegaly, rebound, tenderness Rectal exam: PRESENT: deferred Extremities exam: ABSENT: full ROM, left AKA, right AKA, left BKA, right BKA, calf tenderness, joint swelling, pedal edema, tenderness, other Musculoskeletal exam: PRESENT: ambulatory Neurological exam: PRESENT: alert, awake, oriented to person, oriented to place , oriented to time, oriented to situation, CN II-XII grossly intact. ABSENT: motor sensory deficit Psychiatric exam: PRESENT: appropriate affect, normal mood. ABSENT: homicidal ideation, suicidal ideation Skin exam: PRESENT: dry, intact, warm. ABSENT: cyanosis, rash Results Laboratory Results: 09/20/17 11:39 09/20/17 11:39 WBC 8.1 RBC 4.10 Hgb 12.0 Hct 36.0 MCV 88 MCH 29.2 MCHC 33.3 RDW 13.6 Plt Count 290 Seg Neutrophils % 61.0 Lymphocytes % 30.0 Monocytes % 6.4 Eosinophils % 1.8 Basophils % 0.8 Absolute Neutrophils 4.9 Absolute Lymphocytes 2.4 Absolute Monocytes 0.5 Absolute Eosinophils 0.1 Absolute Basophils 0.1 Assessment & Plan - Diagnosis (1) GI bleed Qualifiers: GI bleed type/associated pathology: unspecified gastrointestinal hemorrhage type Qualified Code(s): K92.2 - Gastrointestinal hemorrhage, unspecified Is this a current diagnosis for this admission?: Yes Plan: I do not see any acute GI bleed currently all stable will monitor for next 24 hours repeat the CBC (2) Type 2 diabetes mellitus Qualifiers: Diabetes mellitus complication status: with neurologic complications Diabetes mellitus complication detail: with polyneuropathy Diabetes mellitus intermediate insulin use: with intermediate use Qualified Code(s): E11.42 - Type 2 diabetes mellitus with diabetic polyneuropathy; Z79.4 - rod mill 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
[2017-09-20] MEDS: ATORVASTATIN CALCIUM 10 MG TABLET PO SCH (21:18)
[2017-09-21 04:54] LABS: ABSOLUTE BASOPHILS # (AUTO) 0.1 10^3/uL (0.0-0.2); ABSOLUTE EOSINOPHILS # (AUTO) 0.2 10^3/uL (0.0-0.6); ABSOLUTE LYMPHOCYTES (AUTO) 3.2 10^3/uL (0.5-4.7); ABSOLUTE MONOCYTES (AUTO) 0.4 10^3/uL (0.1-1.4); ABSOLUTE NEUT (AUTO) 2.7 10^3/uL (1.7-8.2); BASOPHILS % (AUTO) 0.9 % (0-2); EOSINOPHILS % (AUTO) 2.8 % (0-6); HEMATOCRIT 32.1 % (36.0-47.0); HEMOGLOBIN 10.8 g/dL (12.0-15.5); LYMPHOCYTES % (AUTO) 49.3 % (13-45); MEAN CORPUSCULAR HEMOGLOBIN 29.6 pg (27.0-33.4); MEAN CORPUSCULAR HGB CONC 33.7 g/dL (32.0-36.0); MEAN CORPUSCULAR VOLUME 88 fl (80-97); MONOCYTES % (AUTO) 6.3 % (3-13); PLATELET COUNT 255 10^3/uL (150-450); RED BLOOD COUNT 3.67 10^6/uL (3.72-5.28); RED CELL DISTRIBUTION WIDTH 13.6 % (11.5-14.0); SEGMENTED NEUTROPHILS % (AUTO) 40.7 % (42-78); TOTAL CELLS COUNTED % (AUTO) 100 %; WHITE BLOOD COUNT 6.5 10^3/uL (4.0-10.5)
[2017-09-21 05:24] LABS: ANION GAP 7 (5-19); BLOOD UREA NITROGEN 17 mg/dL (7-20); CALCIUM 9.7 mg/dL (8.4-10.2); CARBON DIOXIDE 31 mmol/L (22-30); CHLORIDE 104 mmol/L (98-107); GLUCOSE 159 mg/dL (75-110); POTASSIUM 3.7 mmol/L (3.6-5.0)
[2017-09-21] MEDS: GABAPENTIN 300 MG CAPSULE PO SCH ×3 (06:18→22:27)
[2017-09-21] MEDS: INSULIN LISPRO 100 UNIT/ML 3 ML VIAL SUBCUT PRN ×4 (08:21→22:36)
[2017-09-21] MEDS: MULTIVIT-STRESS FORMULA/ZINC TABLET PO SCH (09:26)
[2017-09-21] MEDS: LISINOPRIL 5 MG TABLET PO SCH (09:26)
[2017-09-21] MEDS: OMEGA-3 ACID ETHYL ESTERS 1 GM CAPSULE PO SCH (09:26)
[2017-09-21] MEDS: MULTIVITAMIN TABLET PO SCH (09:27)
[2017-09-21] MEDS: FERROUS SULFATE 325 MG TABLET PO SCH (09:27)
[2017-09-21] MEDS: VITAMIN E (DL, ACETATE) 400 UNIT CAPSULE PO SCH (09:27)
[2017-09-21] MEDS: INSULIN DETEMIR 100 UNIT/ML 3 ML PEN SUBCUT SCH (09:27)
--- NOTE | 2017-09-21 21:09 | PROGRESS NOTE E ---
Progress Note NAME: JOSUÉ HICKS : 1955 AGE: 62Y DATE: 09/21/2017 ROOM: 528 SUBJECTIVE: The patient is apparently doing fair. The patient had MRI of the head done, it was negative for any acute finding. The patient's headache is better. The patient still has some audible wheezing, other than that no chest pain, not short of breath. The patient is complaining of some ear problems. OBJECTIVE: VITAL SIGNS: The patient's vital signs are all stable. GENERAL: The patient is alert, awake, oriented, in no acute distress. HEAD AND NECK: Normocephalic. PERRLA. LUNGS: Some mild expiratory wheeze. No rales, no rhonchi. HEART: S1, S2 is present. ABDOMEN: Soft. Bowel sounds present. EXTREMITIES: No edema. NEUROLOGIC: No focal weaknesses and patient moves all 4 extremities. ASSESSMENT: 1. ASTHMA. STATUS POST EXTUBATION. 2. HEADACHE. 3. HYPERTENSION. PLAN: At this point continue IV Solu-Medrol, reduce the dose to 40 mg. Continue respiratory treatments and continue the current medications. Discussed the MRI report and all other test reports with the patient. Discussed with the nursing staff who is taking care of the patient. I hope the patient continues to be improved. DICTATING PHYSICIAN: ALIN WELLS M.D. [id number] STIVEN#: [id number] ID: [id number] JOB#: [id number] ACCT: [id number] cc: >
[2017-09-21] MEDS: ATORVASTATIN CALCIUM 10 MG TABLET PO SCH (22:27)
[2017-09-22 04:55] LABS: ABSOLUTE BASOPHILS # (AUTO) 0.1 10^3/uL (0.0-0.2); ABSOLUTE EOSINOPHILS # (AUTO) 0.2 10^3/uL (0.0-0.6); ABSOLUTE LYMPHOCYTES (AUTO) 3.1 10^3/uL (0.5-4.7); ABSOLUTE MONOCYTES (AUTO) 0.4 10^3/uL (0.1-1.4); ABSOLUTE NEUT (AUTO) 2.8 10^3/uL (1.7-8.2); BASOPHILS % (AUTO) 0.8 % (0-2); EOSINOPHILS % (AUTO) 2.6 % (0-6); HEMATOCRIT 30.6 % (36.0-47.0); HEMOGLOBIN 10.4 g/dL (12.0-15.5); LYMPHOCYTES % (AUTO) 47.3 % (13-45); MEAN CORPUSCULAR HEMOGLOBIN 29.8 pg (27.0-33.4); MEAN CORPUSCULAR HGB CONC 34.1 g/dL (32.0-36.0); MEAN CORPUSCULAR VOLUME 88 fl (80-97); MONOCYTES % (AUTO) 5.9 % (3-13); PLATELET COUNT 256 10^3/uL (150-450); RED CELL DISTRIBUTION WIDTH 13.6 % (11.5-14.0); SEGMENTED NEUTROPHILS % (AUTO) 43.4 % (42-78); TOTAL CELLS COUNTED % (AUTO) 100 %; WHITE BLOOD COUNT 6.5 10^3/uL (4.0-10.5)
[2017-09-22 05:12] LABS: BLOOD UREA NITROGEN 19 mg/dL (7-20); CALCIUM 9.2 mg/dL (8.4-10.2); CARBON DIOXIDE 31 mmol/L (22-30); CHLORIDE 103 mmol/L (98-107); GLUCOSE 184 mg/dL (75-110); POTASSIUM 4.2 mmol/L (3.6-5.0)
[2017-09-22 05:13] LABS: ANION GAP 7 (5-19); SODIUM 140.7 mmol/L (137-145)
[2017-09-22] MEDS: GABAPENTIN 300 MG CAPSULE PO SCH ×3 (06:08→21:33)
[2017-09-22] MEDS: LISINOPRIL 5 MG TABLET PO SCH (10:09)
[2017-09-22] MEDS: INSULIN DETEMIR 100 UNIT/ML 3 ML PEN SUBCUT SCH (10:09)
[2017-09-22] MEDS: OMEGA-3 ACID ETHYL ESTERS 1 GM CAPSULE PO SCH (10:09)
[2017-09-22] MEDS: FERROUS SULFATE 325 MG TABLET PO SCH (10:09)
[2017-09-22] MEDS: MULTIVIT-STRESS FORMULA/ZINC TABLET PO SCH (10:09)
[2017-09-22] MEDS: MULTIVITAMIN TABLET PO SCH (10:09)
[2017-09-22] MEDS: INSULIN LISPRO 100 UNIT/ML 3 ML VIAL SUBCUT PRN ×4 (10:09→23:30)
[2017-09-22] MEDS: VITAMIN E (DL, ACETATE) 400 UNIT CAPSULE PO SCH (13:20)
[2017-09-22] MEDS ORDERED: NORMAL SALINE 1000 ML 1,000 ML IV PRN (17:22)
--- NOTE | 2017-09-22 21:20 | RADIOLOGY REPORT (SQ) ---
EXAM DESCRIPTION: NM GI BLEED SCAN COMPLETED DATE/TIME: 09/22/2017 9:03 pm REASON FOR STUDY: hematochezia COMPARISON: None. RADIONUCLIDE AND DOSE: 27.3 millicuries Technetium-labeled red blood cells. TECHNIQUE: Serial arterial-phase images acquired for 80 seconds immediately following injection of r adionuclide. Additional 60 images acquired at 60 seconds per image. LIMITATIONS: None. FINDINGS: Flow images without focal areas of abnormal radionuclide location. Serial images show no abnormal accumulation of radionuclide. IMPRESSION: NORMAL RADIONUCLIDE GASTROINTESTINAL BLEEDING STUDY.
--- NOTE | 2017-09-22 21:23 | RADIOLOGY REPORT (SQ) ---
EXAM DESCRIPTION: CT ABD/PELVIS WITH IV ONLY COMPLETED DATE/TIME: 09/22/2017 9:12 pm REASON FOR STUDY: abdominal pain and hematochezia COMPARISON: None. TECHNIQUE: CT scan of the abdomen and pelvis performed using helical scanning technique with dynamic intravenous contrast injection. No oral contrast. Images reviewed with lung, soft tissue, and bone windows. Reconstructed coronal and sagittal MPR images reviewed. Delayed images for evaluation of the urinary system also acquired. All images stored on PACS. All CT scanners at this facility use dose modulation, iterative reconstruction, and/or weight based d osing when appropriate to reduce radiation dose to as low as reasonably achievable (ALARA). [facility]: Dose Right [facility]: CareDose [facility]: Dose Right [facility]: Teradose 4D [facility]: Zipdial CONTRAST TYPE AND DOSE: contrast/concentration: Isovue 370.00 mg/ml; Total Contrast Delivered: 81.0 ml; Total Saline Delivered: 43.0 ml RENAL FUNCTION: GFR > 60. RADIATION DOSE: CT Rad equipment meets quality standard of care and radiation dose reduction techniq ues were employed. CTDIvol: 10.5 - 12.3 mGy. DLP: 1156 mGy-cm.. LIMITATIONS: None. FINDINGS: LOWER CHEST: No significant findings. No nodules or infiltrates. LIVER: Normal size. No masses. No dilated ducts. SPLEEN: Normal size. No focal lesions. PANCREAS: No masses. No significant calcifications. No adjacent inflammation or peripancreatic fluid collections. Pancreatic duct not dilated. GALLBLADDER: Surgically absent. ADRENAL GLANDS: No significant masses or asymmetry. RIGHT KIDNEY AND URETER: No solid masses. No significant calcifications. No hydronephrosis or hyd roureter. LEFT KIDNEY AND URETER: No solid masses. 1 mm renal calculi. No hydronephrosis or hydroureter. AORTA AND VESSELS: No aneurysm. No dissection. Renal arteries, SMA, celiac without stenosis. RETROPERITONEUM: No retroperitoneal adenopathy, hemorrhage or masses. BOWEL AND PERITONEAL CAVITY: Prior gastric bypass. No masses or inflammatory changes. No free fluid or peritoneal masses. APPENDIX: Normal. PELVIS: No mass. No free fluid. Normal bladder. ABDOMINAL WALL: Anterior abdominal wall hernia containing fat. BONES: No significant or acute findings. OTHER: No other significant finding. IMPRESSION: No acute abnormality in the abdomen or pelvis. TECHNICAL DOCUMENTATION: JOB ID: [id number] Quality ID # [id number]: Final reports with documentation of one or more dose reduction techniques (e.g., Au tomated exposure control, adjustment of the mA and/or kV according to patient size, use of iterative reconstruction technique) 2010 [employer]- All Rights Reserved
[2017-09-22] MEDS: ATORVASTATIN CALCIUM 10 MG TABLET PO SCH (21:33)
--- NOTE | 2017-09-22 22:05 | PDOC PROGRESS REPORT ---
Subjective Progress Note for:: 09/22/17 Subjective:: Patient was admitted on Friday because of lower GI bleed, she was brought seen initially for observation, she was seen earlier on the day before this admission for same problem and at a time she had colonoscopy done, it was negative for any active bleeding she told me that she still have blood in her stool today I did a stat CT scan of the abdomen and pelvis with IV contrast and also a bleeding scan both came back negative, essentially normal studies Reason For Visit: GI BLEED Physical Exam Vital Signs: Temp Pulse Resp BP Pulse Ox 97.8 F 100 16 93/50 L 96 09/22/17 15:20 09/22/17 15:20 09/22/17 15:20 09/22/17 15:20 09/22/17 15:20 Intake & Output 09/21/17 09/22/17 09/23/17 06:59 06:59 06:59 Intake Total 2130 660 1182 Output Total 1850 Balance 114 265 6419 General appearance: PRESENT: no acute distress, well-developed, well-nourished Head exam: PRESENT: atraumatic, normocephalic Eye exam: PRESENT: conjunctiva pink, EOMI, PERRLA Ear exam: PRESENT: normal external ear exam Mouth exam: PRESENT: moist, tongue midline Neck exam: PRESENT: full ROM Respiratory exam: PRESENT: clear to auscultation nilda Cardiovascular exam: PRESENT: RRR, +S1, +S2 Pulses: PRESENT: normal dorsalis pedis pul, +2 pedal pulses bilateral Vascular exam: PRESENT: normal capillary refill GI/Abdominal exam: PRESENT: normal bowel sounds, soft Rectal exam: PRESENT: deferred Neurological exam: PRESENT: alert, awake, oriented to person, oriented to place , oriented to time, oriented to situation, CN II-XII grossly intact Psychiatric exam: PRESENT: appropriate affect, normal mood Skin exam: PRESENT: dry, intact, warm Results Laboratory Results: 09/22/17 03:46 09/22/17 03:46 09/21/17 09/22/17 09/22/17 10:10 03:46 03:46 WBC 6.5 RBC 3.50 L Hgb 10.4 L Hct 30.6 L MCV 88 MCH 29.8 MCHC 34.1 RDW 13.6 Plt Count 256 Seg Neutrophils % 43.4 Lymphocytes % 47.3 H Monocytes % 5.9 Eosinophils % 2.6 Basophils % 0.8 Absolute Neutrophils 2.8 Absolute Lymphocytes 3.1 Absolute Monocytes 0.4 Absolute Eosinophils 0.2 Absolute Basophils 0.1 Sodium 140.7 Potassium 4.2 Chloride 103 Carbon Dioxide 31 H Anion Gap 7 BUN 19 Creatinine 0.58 Est GFR ( Amer) > 60 Est GFR (Non-Af Amer) > 60 Glucose 184 H Calcium 9.2 Stool Occult Blood POSITIVE Impressions: Abdomen/Pelvis CT 09/22/17 00:00 IMPRESSION: No acute abnormality in the abdomen or pelvis. GI Bleed Scan Nuclear Medicine 09/22/17 00:00 IMPRESSION: NORMAL RADIONUCLIDE GASTROINTESTINAL BLEEDING STUDY. Assessment & Plan - Diagnosis (1) Hematochezia Is this a current diagnosis for this admission?: Yes (2) Lower GI bleed Is this a current diagnosis for this admission?: Yes (3) Type 2 diabetes mellitus Qualifiers: Diabetes mellitus complication status: with neurologic complications Diabetes mellitus complication detail: with polyneuropathy Diabetes mellitus long term care administrator insulin use: with long term care administrator use Qualified Code(s): E11.42 - Type 2 diabetes mellitus with diabetic polyneuropathy; Z79.4 - [facility] (current) use of insulin; Z79.4 - manager long term care (current) use of insulin; Z79.4 - [facility] ( current) use of insulin; Z79.4 - manager long term care (current) use of insulin Is this a current diagnosis for this admission?: Yes
[2017-09-23] MEDS: GABAPENTIN 300 MG CAPSULE PO SCH ×2 (06:17→14:07)
[2017-09-23 07:29] LABS: ANION GAP 10 (5-19); BLOOD UREA NITROGEN 21 mg/dL (7-20); CALCIUM 9.7 mg/dL (8.4-10.2); CARBON DIOXIDE 31 mmol/L (22-30); CHLORIDE 101 mmol/L (98-107); GLUCOSE 133 mg/dL (75-110); POTASSIUM 4.2 mmol/L (3.6-5.0); SODIUM 141.6 mmol/L (137-145)
[2017-09-23] MEDS: LISINOPRIL 5 MG TABLET PO SCH (08:56)
[2017-09-23] MEDS: INSULIN DETEMIR 100 UNIT/ML 3 ML PEN SUBCUT SCH (09:05)
[2017-09-23] MEDS: FERROUS SULFATE 325 MG TABLET PO SCH (09:05)
[2017-09-23] MEDS: MULTIVITAMIN TABLET PO SCH (09:06)
[2017-09-23] MEDS: MULTIVIT-STRESS FORMULA/ZINC TABLET PO SCH (09:06)
[2017-09-23] MEDS: VITAMIN E (DL, ACETATE) 400 UNIT CAPSULE PO SCH (09:06)
[2017-09-23] MEDS: OMEGA-3 ACID ETHYL ESTERS 1 GM CAPSULE PO SCH (09:06)
[2017-09-23] MEDS: INSULIN LISPRO 100 UNIT/ML 3 ML VIAL SUBCUT PRN (12:14)
[2017-09-23 18:40] VITALS: BP 122/67
--- NOTE | 2017-09-23 20:58 | PDOC DISCHARGE SUMMARY ---
General - Admit/Disc Date/PCP Admission Date/Primary Care Provider: 09/20/17 10:16 HALINA RAMIREZ MD Discharge Date: 09/23/17 - Discharge Diagnosis (1) Hematochezia Is this a current diagnosis for this admission?: Yes (2) Lower GI bleed Is this a current diagnosis for this admission?: Yes (3) Type 2 diabetes mellitus Is this a current diagnosis for this admission?: Yes - Additional Information Resuscitation Status: Full Code Discharge Diet: As Tolerated Discharge Activity: Activity As Tolerated Home Medications: Cholecalciferol (Vitamin D3) [Vitamin D3] 1,000 unit PO DAILY 09/19/17 Ferrous Sulfate [Feosol 325 mg Tablet] 325 mg PO Q2D 09/19/17 Insulin Detemir [Levemir Flextouch] 20 units SQ DAILY 09/19/17 Insulin Lispro [Humalog Kwikpen U-100] 5 units SQ .SLIDING SCALE 09/19/17 Lisinopril [Prinivil 5 mg Tablet] 5 mg PO QHS 09/19/17 Metformin HCl [Glucophage 500 mg Tablet] 500 mg PO BIDBS 09/19/17 Multivitamin [Tab-A-Ginny (Multiple Vitamin) Tablet] 1 tab PO DAILY 09/19/17 [place]-3 Fatty Acids [[place]-3] 1,000 mg PO DAILY 09/19/17 Pravastatin Sodium [Pravachol] 20 mg PO QHS 09/19/17 Ubidecarenone [Coq-10] 400 mg PO DAILY 09/19/17 Vitamin B Complex [B Complex] 1 cap PO DAILY 09/19/17 Vitamin E 1,000 unit PO DAILY 09/19/17 History of Present Illness History of Present Illness: JOSUÉ HICKS is a 62 year old female, She was just discharged from this hospital yesterday when she presented with lower GI bleed, she was transfused with 2 units of packed red blood cells the last time she was admitted and she was seen by the regulatory scientist,DR Yang she underwent colonoscopy, she was found to have diverticulosis and internal hemorrhoids but no active bleeding was identified. She came to the emergency room last night because she said she had an episode of rectal bleed, there is no active bleeding ongoing at this time but because she stated that she has rectal bleed she is been admitted for close monitoring and if needed she may need a bleeding scan if active bleeding ensues Hospital Course Hospital Course: Patient was admitted for the management of lower GI bleed she had episode of 2 lower GI bleed it was not torrential bleed. She had CT scan of the abdomen and pelvis with IV contrast which was normal she also had a bleeding scan it was negative. Physical Exam Vital Signs: Temp Pulse Resp BP Pulse Ox 97.6 F 93 18 122/67 100 09/23/17 18:39 09/23/17 18:39 09/23/17 18:39 09/23/17 18:39 09/23/17 18:39 Intake & Output 09/22/17 09/23/17 09/24/17 06:59 06:59 06:59 Intake Total 660 2502 2145 Balance 660 2502 2145 General appearance: PRESENT: no acute distress, well-developed, well-nourished Head exam: PRESENT: atraumatic, normocephalic Eye exam: PRESENT: conjunctiva pink, EOMI, PERRLA Ear exam: PRESENT: normal external ear exam Mouth exam: PRESENT: moist, tongue midline Neck exam: PRESENT: full ROM Respiratory exam: PRESENT: clear to auscultation nilda Cardiovascular exam: PRESENT: RRR, +S1, +S2 Pulses: PRESENT: normal dorsalis pedis pul, +2 pedal pulses bilateral Vascular exam: PRESENT: normal capillary refill GI/Abdominal exam: PRESENT: normal bowel sounds, soft Rectal exam: PRESENT: deferred Neurological exam: PRESENT: alert, awake, oriented to person, oriented to place , oriented to time, oriented to situation, CN II-XII grossly intact. ABSENT: motor sensory deficit Psychiatric exam: PRESENT: appropriate affect, normal mood. ABSENT: homicidal ideation, suicidal ideation Skin exam: PRESENT: dry, intact, warm. ABSENT: cyanosis, rash Results Laboratory Results: 09/22/17 03:46 09/23/17 06:02 09/23/17 06:02 Sodium 141.6 Potassium 4.2 Chloride 101 Carbon Dioxide 31 H Anion Gap 10 BUN 21 H Creatinine 0.57 Est GFR ( Amer) > 60 Est GFR (Non-Af Amer) > 60 Glucose 133 H Calcium 9.7 Impressions: Abdomen/Pelvis CT 09/22/17 00:00 IMPRESSION: No acute abnormality in the abdomen or pelvis. GI Bleed Scan Nuclear Medicine 09/22/17 00:00 IMPRESSION: NORMAL RADIONUCLIDE GASTROINTESTINAL BLEEDING STUDY.
== END 2017-09-23 18:45 | disposition home or self-care (01) | DRG 379 ==
LOC: ER 21:39 → INTOOBSV 09-19 00:56 → EH 09-19 00:56 → 5 09-19 13:30 → OBSVTOIN 09-20 10:16
PROVIDERS: ADMIT Internal Medicine; ATTEND Internal Medicine
DX: K92.1 Melena (principal); D64.9 Anemia, unspecified; K57.30 Diverticulosis of large intestine without perforation or abscess without bleeding; K64.8 Other hemorrhoids; E11.42 Type 2 diabetes mellitus with diabetic polyneuropathy; I10 Essential (primary) hypertension; Z60.2 Problems related to living alone; Z79.84 Long term (current) use of oral hypoglycemic drugs; Z79.82 Long term (current) use of aspirin; Z79.4 Long term (current) use of insulin; Z79.899 Other long term (current) drug therapy
CPT/HCPCS: 36415; 74177; 78278; 80048; 80053; 81001; 82272; 82570; 82962; 84156; 85025; 85610; 99284; A9560; J1642; J1815; J3490; J7030; Q9969

== ENCOUNTER 2017-10-19 17:23 | Emergency (ER) | payer BC ==
[2017-10-19 17:47] VITALS: BP 132/63
[2017-10-19] MEDS ORDERED: MORPHINE SULFATE IR 15 MG TABLET PO ONE (18:46)
--- NOTE | 2017-10-19 18:50 | ER Document Report ---
HPI - HPI Pain Level: 5 Notes: Patient is a 62-year-old female with a history of diabetes who presents to the ED complaining of left knee pain and swelling status post injury prior to arrival. Patient states that she was in her kitchen when she slipped and fell directly on her left knee. Patient denies any head injury or loss of consciousness. She has not had any nausea or vomiting. Patient was limping better after. Patient was brought into the ED by EMS because of the pain and swelling. Patient states that she has never broken any bone in her body. She still eating and drinking without difficulties. She is urinating normally. No other concerns or complaints at this time. Pt is not on any blood thinners. Denies any headache, fever, head injury, neck pain, changes in vision/speech/ mentation/hearing, URI, sore throat, chest pain, palpitations, syncope, cough, shortness of breath, wheeze, dyspnea, abdominal pain, nausea/vomiting/diarrhea, urinary retention, dysuria, hematuria, loss of control of bowel or bladder, numbness/tingling, saddle anesthesia, muscle paralysis/weakness, or rash. - ROS Systems Reviewed and Negative: Yes All other systems reviewed and negative Past Medical History - Social History Smoking Status: Never Smoker Family History: Reviewed & Not Pertinent - Past Medical History Cardiac Medical History: Reports: Hx Hypertension Denies: Hx Coronary Artery Disease, Hx Heart Attack Pulmonary Medical History: Denies: Hx Asthma, Hx Bronchitis, Hx COPD, Hx Pneumonia Neurological Medical History: Denies: Hx Cerebrovascular Accident, Hx Seizures Endocrine Medical History: Reports: Hx Diabetes Mellitus Type 2 Renal/ Medical History: Denies: Hx Peritoneal Dialysis Musculoskeltal Medical History: Reports Hx Arthritis - LT HIP,HANDS,FINGERS Psychiatric Medical History: Reports: Hx Depression Past Surgical History: Reports: Hx Abdominal Surgery - gastric bypass-2004, Hx Hysterectomy - Immunizations Hx Diphtheria, Pertussis, Tetanus Vaccination: Yes Hx Pneumococcal Vaccination: 06/15/16 Vertical Provider Document - CONSTITUTIONAL Agree With Documented VS: Yes Notes: PHYSICAL EXAMINATION: GENERAL: Well-appearing, well-nourished and in no acute distress. LUNGS: Breath sounds clear to auscultation bilaterally and equal. No wheezes rales or rhonchi. HEART: Regular rate and rhythm without murmurs, rubs, gallops. Musculoskeletal: Lt knee: + swelling and ecchymosis anterior knee. LROM to passive/active. Strength 4+/5. + tenderness to the patella to palp. N/V intact distal. Pt would not allow for adequate testing of ligaments/meniscus. No posterior tenderness. Jimmy neg b/l. Extremities: No cyanosis, clubbing, or edema b/l. Peripheral pulses 2+. Capillary refill less than 3 seconds. NEUROLOGICAL: Normal speech. Normal sensory, motor exams PSYCH: Normal mood, normal affect. SKIN: Warm, Dry, normal turgor, no rashes or lesions noted. - INFECTION CONTROL TRAVEL OUTSIDE OF THE [place] IN LAST 30 DAYS: No - RESPIRATORY O2 Sat by Pulse Oximetry: 95 Course - Re-evaluation Re-evalutation: 10/19/17 19:20 Patient is an afebrile, well-hydrated, 62-year-old female who presents ED with a transverse fracture of her left patella status post injury. Vitals are stable. PE is otherwise unremarkable for any neurovascular compromise, obvious tendon/ligament rupture, open fracture, septic joint. See x-ray result. Knee immobilizer was placed and crutches given. Patient was given 1 tablet of morphine IR today and will be sent home with a short course of morphine IR. Patient to call orthopedics tomorrow to set up an appointment for further evaluation and management. Recheck with your PCM in 3-5 days as well. Return to the ED with any worsening/concerning symptoms otherwise as reviewed discharge. Patient is in agreement. - Vital Signs Vital signs: Temp Pulse Resp BP Pulse Ox 98.3 F 76 14 132/63 H 95 10/19/17 17:45 10/19/17 17:45 10/19/17 17:45 10/19/17 17:45 10/19/17 17:45 Discharge - Discharge Clinical Impression: Patella fracture Qualifiers: Encounter type: initial encounter Fracture type: closed Fracture morphology: transverse Fracture alignment: displaced Laterality: left Qualified Code(s): S82.032A - Displaced transverse fracture of left patella, initial encounter for closed fracture Condition: Stable Disposition: HOME, SELF-CARE Instructions: Use of Crutches ([facility]), Fractured Patella ([facility]), Ice & Elevation ( [facility]), Knee Immobilizing Splint ([facility]) Additional Instructions: Rest, Ice, Compression, Elevation Use crutches/splint as directed Tylenol/ibuprofen as needed Light stretches daily Strength exercises as able Moist heat and massage may help F/u with your PCP in 3-5 days for a recheck Call orthopedics tomorrow to schedule an appointment for further evaluation and management Return to the ED with any worsening symptoms and/or development of fever, headache, chest pain, palpitations, syncope, shortness of breath, trouble breathing, abdominal pain, n/v/d, muscle weakness/paralysis, numbness/tingling, swelling, redness, or other worsening symptoms that are concerning to you. Prescriptions: Morphine Sulfate [Morphine Ir 15 Mg Tablet] 15 mg PO TID #10 tablet Forms: Elevated Blood Pressure Referrals: [facility] [Provider Group] - Follow up tomorrow
--- NOTE | 2017-10-19 19:07 | RADIOLOGY REPORT (SQ) ---
EXAM DESCRIPTION: KNEE LEFT 4 VIEW COMPLETED DATE/TIME: 10/19/2017 6:42 pm REASON FOR STUDY: left knee pain s/p injury COMPARISON: None. NUMBER OF VIEWS: Four views. TECHNIQUE: AP, lateral, and both oblique radiographic images acquired of the left knee. LIMITATIONS: None. FINDINGS: MINERALIZATION: Normal. BONES: Acute transverse fracture left patella, best shown on lateral view. Minimal separation of the patellar fragments. JOINT: Large suprapatellar knee joint effusion SOFT TISSUES: Prepatellar soft tissue swelling. Arterial vascular calcifications OTHER: No other significant finding. IMPRESSION: Acute transverse minimally displaced fracture through the patella. Associated suprapate llar knee joint effusion TECHNICAL DOCUMENTATION: JOB ID: [id number] [employer]- All Rights Reserved
[2017-10-19] MEDS ORDERED: HYDROMORPHONE HCL INJ/PF 2 MG/ML AMPULE IV ONE (19:24)
== END 2017-10-19 20:10 | disposition home or self-care (01) ==
LOC: ER 17:23
DX: S82.032A Displaced transverse fracture of left patella, initial encounter for closed fracture (principal); S80.02XA Contusion of left knee, initial encounter; M25.562 Pain in left knee; M79.89 Other specified soft tissue disorders; E11.9 Type 2 diabetes mellitus without complications; W01.0XXA Fall on same level from slipping, tripping and stumbling without subsequent striking against object, initial encounter; Y92.000 Kitchen of unspecified non-institutional (private) residence as the place of occurrence of the external cause
CPT/HCPCS: 99283; 96374; 73562; L1830; J1170

== ENCOUNTER 2017-11-07 10:09 | Day surgery (SDC) | payer BC ==
[2017-11-05 13:18] LABS: ABSOLUTE BASOPHILS # (AUTO) 0.1 10^3/uL (0.0-0.2); ABSOLUTE EOSINOPHILS # (AUTO) 0.1 10^3/uL (0.0-0.6); ABSOLUTE LYMPHOCYTES (AUTO) 2.3 10^3/uL (0.5-4.7); ABSOLUTE MONOCYTES (AUTO) 0.4 10^3/uL (0.1-1.4); ABSOLUTE NEUT (AUTO) 4.8 10^3/uL (1.7-8.2); BASOPHILS % (AUTO) 1.1 % (0-2); EOSINOPHILS % (AUTO) 1.7 % (0-6); HEMATOCRIT 36.8 % (36.0-47.0); HEMOGLOBIN 12.4 g/dL (12.0-15.5); LYMPHOCYTES % (AUTO) 29.5 % (13-45); MEAN CORPUSCULAR HEMOGLOBIN 28.9 pg (27.0-33.4); MEAN CORPUSCULAR HGB CONC 33.7 g/dL (32.0-36.0); MEAN CORPUSCULAR VOLUME 86 fl (80-97); MONOCYTES % (AUTO) 5.3 % (3-13); PLATELET COUNT 386 10^3/uL (150-450); RED BLOOD COUNT 4.29 10^6/uL (3.72-5.28); RED CELL DISTRIBUTION WIDTH 13.3 % (11.5-14.0); SEGMENTED NEUTROPHILS % (AUTO) 62.4 % (42-78); TOTAL CELLS COUNTED % (AUTO) 100 %; WHITE BLOOD COUNT 7.8 10^3/uL (4.0-10.5)
--- NOTE | 2017-11-05 13:20 | RADIOLOGY REPORT (SQ) ---
EXAM DESCRIPTION: CHEST PA/LATERAL COMPLETED DATE/TIME: 11/05/2017 1:03 pm REASON FOR STUDY: PRE OP COMPARISON: 09/17/2017. EXAM PARAMETERS: NUMBER OF VIEWS: two views TECHNIQUE: Digital Frontal and Lateral radiographic views of the chest acquired. RADIATION DOSE: NA LIMITATIONS: none FINDINGS: LUNGS AND PLEURA: No acute infiltrates or effusions. . MEDIASTINUM AND HILAR STRUCTURES: No masses or contour abnormalities. HEART AND VASCULAR STRUCTURES: The heart is normal with normal pulmonary vasculature. BONES: Dorsal spondylosis seen. . OTHER: No other significant finding. IMPRESSION: NO ACUTE DISEASE. TECHNICAL DOCUMENTATION: JOB ID: [id number] 2010 [employer]- All Rights Reserved
[2017-11-05 13:26] LABS: APPEARANCE,URINE CLOUDY; BILIRUBIN,URINE NEGATIVE (NEGATIVE); COLOR,URINE YELLOW; GLUCOSE, URINE >=500 mg/dL (NEGATIVE); KETONES,URINE NEGATIVE (NEGATIVE); LEUKOCYTE ESTERASE,URINE NEGATIVE (NEGATIVE); NITRITE,URINE NEGATIVE (NEGATIVE); PROTEIN,URINE NEGATIVE (NEGATIVE); UROBILINOGEN,URINE NEGATIVE mg/dL (<2.0)
[2017-11-05 13:37] LABS: ANION GAP 11 (5-19); BLOOD UREA NITROGEN 20 mg/dL (7-20); CALCIUM 9.8 mg/dL (8.4-10.2); CARBON DIOXIDE 29 mmol/L (22-30); CHLORIDE 102 mmol/L (98-107); GLUCOSE 126 mg/dL (75-110); POTASSIUM 4.3 mmol/L (3.6-5.0); SODIUM 141.8 mmol/L (137-145)
--- NOTE | 2017-11-05 13:41 | EKG REPORT ---
SEVERITY:- NORMAL ECG - SINUS RHYTHM : Confirmed by: Sebastian Chavira MD 05-Nov-2017 13:41:17
[~2017-11-07 10:09] MED LIST: CEFAZOLIN 2 GM/D5W RTU 2 GM/50 ML RTUPB IV SCH; LACTATED RINGERS 1000 ML IV PRN; LIDOCAINE 0.5% INJ-PF (5 MG/ML) 50 ML SDV SUBCUT PRN
[2017-11-07] MEDS ORDERED: FAMOTIDINE INJ/PF 20 MG/2 ML SDV IV ONE (11:57)
[2017-11-07] MEDS ORDERED: FENTANYL CITRATE INJ/PF 100 MCG/2 ML AMPUL ONE (12:30)
[2017-11-07] MEDS ORDERED: DEXAMETHASONE SOD PHOSPHATE INJ 4 MG/1 ML VIAL ONE (12:30)
[2017-11-07] MEDS ORDERED: MIDAZOLAM 2 MG/2 ML INJ ONE (12:30)
[2017-11-07] MEDS ORDERED: ONDANSETRON HCL INJ/PF 4 MG/2 ML SDV ONE (12:30)
[2017-11-07] MEDS ORDERED: HYDROMORPHONE HCL INJ/PF 2 MG/ML AMPULE ONE (12:31)
[2017-11-07] MEDS ORDERED: ACETAMINOPHEN 100 ML IV ONE (12:31)
[2017-11-07] MEDS ORDERED: PROPOFOL INJ 200 MG/20 ML VIAL IV ONE (12:31)
[2017-11-07] MEDS ORDERED: MEPERIDINE HCL/PF INJ 25 MG/1 ML DISP.SYRIN IV PRN (13:14)
[2017-11-07] MEDS ORDERED: PROMETHAZINE HCL INJ 25 MG/1 ML VIAL IV PRN ×2 (13:14)
[2017-11-07] MEDS ORDERED: FENTANYL CITRATE INJ/PF 100 MCG/2 ML AMPUL IV PRN ×3 (13:14)
[2017-11-07] MEDS ORDERED: DIPHENHYDRAMINE HCL 50 MG/ML VIAL IV PRN (13:14)
[2017-11-07] MEDS ORDERED: IBUPROFEN 800 MG in NORMAL SALINE 250 ML IV ONE (13:30)
[2017-11-07] MEDS ORDERED: LIDOCAINE 2%/EPINEPHRINE INJ 20 ML VIAL ONE (13:39)
[2017-11-07] MEDS ORDERED: LIDOCAINE 2% INJ (20 MG/ML) 20 ML MDV ONE (13:41)
[2017-11-07] MEDS ORDERED: ROPIVACAINE HCL 0.5% INJ/PF (5 MG/1 ML) 30 ML SDV ONE (13:41)
[2017-11-07] MEDS ORDERED: BUPIVACAINE HCL 0.25 % INJ/PF (2.5 MG/1 ML) 30 ML VIAL ONE (14:11)
--- NOTE | 2017-11-07 14:31 | Operative Report ---
Operative Report DATE OF SURGERY: 11/07/17 PREOPERATIVE DIAGNOSIS: Left displaced transverse patella fracture POSTOPERATIVE DIAGNOSIS: Same OPERATION: ORIF of left patella fracture SURGEON: MELBA ONEAL ANESTHESIA: GA TISSUE REMOVED OR ALTERED: None COMPLICATIONS: None ESTIMATED BLOOD LOSS: Less than 10 mL INTRAOPERATIVE FINDINGS: As above PROCEDURE: Patient received preoperative antibiotics in the holding area. The left knee was marked and then the patient was brought to the operating room where she was induced and intubated in supine position. The left knee was then prepped and draped in a normal sterile surgical fashion. Prior to prepping and draping a thigh tourniquet had been applied. Once the patient had been draped timeout was done identifying the left knee is a correct site. At this point Esmarch was used to exsanguinate the extremity and the tourniquet was inflated at 300 mmHg. A midline incision was done right over the patella extending to the quadriceps tendon and patella tendon. Subcutaneous were applied and then fracture site was exposed. I was able to used tenaculum was to do my reduction and used the C-arm for an AP and lateral to confirm reduction. I then proceeded to place 2 K wires from superior to inferior crossing the fracture site. Once I was happy with the length and position of the screws and then proceeded to measure the length. Proceeded to place the most lateral screw first after drilling with a 2.6 cannulated drill over the K wire. I then proceeded to measure again the measured by 38 mm screw so I placed a 38 4.0 mm cannulated partially threaded screw. On the medial side and placing a 36 mm screw after exchanged from a 40 which are noted to be too long. I had measured but still over measured and had to exchange it. Also placed a 36 screw then I used the fiber tape and passed it through the screws using the technique described by [employer]. I crisscrossed the fiber tape and then did a tension band and tied it on the superior lateral margin. I took final x-rays confirming reduction and fixation. I then placed an range of motion overhead 0- 90 with no gapping of the fracture. Bulb irrigation was used to clean the incision and then proceeded to closed with 0 Vicryl and 2-0 Vicryl and then bijan for skin. Xeroform was applied after injecting quarter percent Marcaine into the incision. 4 x 4 dressing and then ABD followed by soft roll and an Rickie bandage. Patient was placed in a knee immobilizer and tourniquet was let down at 63 minutes. Drapes were removed and the patient was extubated and sent to PACU in stable condition
[2017-11-07] MEDS ORDERED: OXYCODONE-ACETAMINOPHEN 5-325 MG TABLET PO PRN ×2 (14:33)
--- NOTE | 2017-11-07 14:33 | Discharge Summary ---
Discharge Summary (SDC) - Discharge Final Diagnosis: ORIF of left patella fracture Date of Surgery: 11/07/17 Discharge Date: 11/07/17 Condition: Good Treatment or Instructions: Keep the dressing dry clean and intact for 4 days. May remove in 4 days and shower. No bathing. Weight-bear as tolerated with knee immobilizer arm. Walker for support and safety. Follow up in the office in 10-14 days. Prescriptions: Oxycodone HCl/Acetaminophen [Percocet 5-325 mg Tablet] 1 - 2 tab PO ASDIR PRN # 40 tablet PRN Reason: Referrals: HALINA RAMIREZ MD [Primary Care Provider] - Discharge Diet: As Tolerated Respiratory Treatments at Home: Deep Breathing/Coughing Discharge Activity: No Driving, Keep Legs Elevated, No Lifting/Push/Pulling Home Care Assistance: None Needed Adaptive Devices on Discharge: Rolling Walker Report the Following to Your Physician Immediately: Shortness of Breath, Vomiting, Increase in Pain, Fever over 101 Degrees, Unusual Bleeding, Redness, Swelling, Warmth, Increased Soreness, Drainage-Yellow, Drainage-Holder, Drainage- Green, Drainage-Foul Smelling
[2017-11-07] MEDS ORDERED: NALOXONE HCL INJ/PF 0.4 MG/1 ML SDV ONE (14:35)
--- NOTE | 2017-11-07 14:41 | RADIOLOGY REPORT (SQ) ---
EXAM DESCRIPTION: KNEE LEFT 2 VIEWS; NO CHG FLUORO COMPLETED DATE/TIME: 11/07/2017 2:23 pm REASON FOR STUDY: ORIF LEFT PATELLA S82.035A NONDISPLACED TRANSVERSE FRACTURE OF LEFT PATELLA, I COMPARISON: 10/19/2017 left knee films FLUOROSCOPY TIME: 1.2 minutes 2 digital C-arm images saved to PACS. TECHNIQUE: Intra-operative images acquired during surgical procedure to evaluate progress. NUMBER OF IMAGES: 2 digital C-arm images LIMITATIONS: None. FINDINGS: 2 films are submitted during ORIF left transverse patellar fracture. Please see the opera tive report for further details IMPRESSION: Intraoperative imaging and fluoro COMMENT: Quality ID 145: Final reports for procedures using fluoroscopy that document radiation exp osure indices, or exposure time and number of fluorographic images (if radiation exposure indices are not available) Please consult full operative report of the attending physician for description of the procedure. TECHNICAL DOCUMENTATION: JOB ID: [id number] [employer]- All Rights Reserved Reading location - IP/workstation name: [email or web address]
--- NOTE | 2017-11-07 14:41 | RADIOLOGY REPORT (SQ) ---
EXAM DESCRIPTION: KNEE LEFT 2 VIEWS; NO CHG FLUORO COMPLETED DATE/TIME: 11/07/2017 2:23 pm REASON FOR STUDY: ORIF LEFT PATELLA S82.035A NONDISPLACED TRANSVERSE FRACTURE OF LEFT PATELLA, I COMPARISON: 10/19/2017 left knee films FLUOROSCOPY TIME: 1.2 minutes 2 digital C-arm images saved to PACS. TECHNIQUE: Intra-operative images acquired during surgical procedure to evaluate progress. NUMBER OF IMAGES: 2 digital C-arm images LIMITATIONS: None. FINDINGS: 2 films are submitted during ORIF left transverse patellar fracture. Please see the opera tive report for further details IMPRESSION: Intraoperative imaging and fluoro COMMENT: Quality ID 145: Final reports for procedures using fluoroscopy that document radiation exp osure indices, or exposure time and number of fluorographic images (if radiation exposure indices are not available) Please consult full operative report of the attending physician for description of the procedure. TECHNICAL DOCUMENTATION: JOB ID: [id number] [employer]- All Rights Reserved Reading location - IP/workstation name: [email or web address]
[2017-11-07] MEDS ORDERED: SUCCINYLCHOLINE CHLORIDE INJ 200 MG/10 ML VIAL ONE (16:25)
[2017-11-07 17:28] VITALS: BP 165/82
== END 2017-11-07 16:30 | disposition home or self-care (01) ==
LOC: OROUT 10:09
PROVIDERS: ATTEND Orthopaedic Surgery
PROC: 0QSF04Z Reposition Left Patella with Internal Fixation Device, Open Approach (ICD-10-PCS; principal; 2017-11-07 12:30)
DX: S82.035A Nondisplaced transverse fracture of left patella, initial encounter for closed fracture (principal); W01.0XXA Fall on same level from slipping, tripping and stumbling without subsequent striking against object, initial encounter; I10 Essential (primary) hypertension; E11.9 Type 2 diabetes mellitus without complications; Z79.84 Long term (current) use of oral hypoglycemic drugs; Z79.899 Other long term (current) drug therapy; Z79.4 Long term (current) use of insulin
CPT/HCPCS: 93005; 36415; 82962; 85025; 80048; 81001; 83036; 71046; 73560; 93010; 27524; L1830; J2795; J2250; J3490 ×2; J1100; J3010; J2310; J1170; J0330; J2405; J7050; J2704; S0028; J0690; J0131; J1741; 01392

== ENCOUNTER → 2018-03-17 | Outpatient (CLI) | payer MEDICARE ==
--- NOTE | 2018-03-19 08:00 | WOMENS IMAGING REPORT ---
EXAM DESCRIPTION: U/S BREAST UNILAT LIMITED COMPLETED DATE/TIME: 03/17/2018 12:27 pm REASON FOR STUDY: ABNORMAL MAMMO R92.8 OTH ABN AND INCONCLUSIVE FINDINGS ON DX IMAGING OF [facility] COMPARISON: Mammograms 03/12/2018, 09/13/2016, 04/01/2014 Ultrasound 04/06/2014 TECHNIQUE: Real-time and static grayscale imaging performed of the left breast 6 o'clock position, t argeted to the area of mammographic concern. Selected color Doppler images recorded. LIMITATIONS: None. FINDINGS: At the 6 o'clock position left breast from the retroareolar region to 10 cm from the nippl e, a nondilated duct is present with multiple small round solid less than 1 cm diameter nodules along its path, likely multiple papillomas. Ultrasound-guided core biopsy of this to largest of these les ions is recommended, with post biopsy clip placement and follow-up two-view mammogram. IMPRESSION: Multiple small subcentimeter solid nodules in the left breast 6 o'clock position, likely multiple papillomas. Ultrasound-guided biopsy with post biopsy clip placement and follow-up two-vie w mammogram is recommended for the 2 largest of these lesions. BIRAD: 4 Suspicious. Biopsy should be considered. RECOMMENDATION: RECOMMENDED FOLLOW-UP: Left breast ultrasound-guided core biopsy with post biopsy cl ip placement and follow-up two-view mammogram COMMENT: The [employer] [place] [employer] (ACR) has developed recommendations for screening MRI of the breasts in certain patient populations, to be used in conjunction with mammography. Breast MRI s urveillance may be appropriate for women with more than 20% lifetime risk of developing breast cancer as determined by genetic testing, significant family history of the disease, or history of mantle r adiation for Hodgkins Disease. ACR Practice Guidelines 2008. TECHNICAL DOCUMENTATION: JOB ID: [id number] [employer]- All Rights Reserved Reading location - IP/workstation name: [email or web address]
== END ==
LOC: WI 11:37
PROVIDERS: ATTEND Physician Assistant
DX: N63.42 Unspecified lump in left breast, subareolar (principal)
CPT/HCPCS: 76642

== ENCOUNTER → 2020-02-15 | Outpatient (CLI) | payer MEDICARE ==
--- NOTE | 2020-02-15 10:48 | WOMENS IMAGING REPORT ---
EXAM DESCRIPTION: BILAT SCREENING MAMMO W/CAD IMAGES COMPLETED DATE/TIME: 02/15/2020 9:53 am REASON FOR STUDY: Z12.31 SCREENING [id number] ENCNTR SCREEN MAMMOGRAM FOR MALIGNANT NEOPLASM O F MANUEL COMPARISON: 03/12/2018 and 09/13/2016. EXAM PARAMETERS: Standard craniocaudal and mediolateral oblique views of each breast recorded using digital acquisition. Read with the assistance of CAD. .[facility] - [email or web address] Reversal Print Inspector Version 9.2 LIMITATIONS: None. FINDINGS: RIGHT BREAST MASSES: No suspicious masses. CALCIFICATIONS: No new or suspicious calcifications. ARCHITECTURAL DISTORTION: None. ASYMMETRY: None noted. OTHER: No other significant findings. LEFT BREAST MASSES: There are multiple small masses in the inferior breast which may have increased in size sligh tly. CALCIFICATIONS: Focal increasing calcifications in the deep breast, located 11.5 cm from the nipple. ARCHITECTURAL DISTORTION: None. ASYMMETRY: None noted. OTHER: No other significant findings. IMPRESSION: Multiple small masses in the inferior left breast may have increased in size slightly ov er the past few years. Also focal increasing calcifications in the deep left breast. Stable mammogr aphic appearance of the right breast. 0 Incomplete: Needs Additional Imaging Evaluation and/or prior Mammograms for Comparison. BREAST DENSITY: a. The breasts are almost entirely fatty. BIRAD: ASSESSMENT: 0 Incomplete: Needs Additional Imaging Evaluation and/or prior Mammograms for C omparison. RECOMMENDATION: RECOMMENDED FOLLOW-UP: Recommend additional evaluation with magnification views of t he left breast and ultrasound of the left breast. Recommend routine screening mammography of the rig ht breast. The patient will be contacted for additional imaging. COMMENT: The patient has been notified of the results by letter per [place] requirements. Additional no tification policies are in place for contacting patient with suspicious or incomplete findings. Quality ID #225: The [place] [employer] recommends an annual screening mammogram for women aged 40 years or over. This facility utilizes a reminder system to ensure that all patients receive reminder letters, and/or direct phone calls for appointments. This includes reminders for routine scr eening mammograms, diagnostic mammograms, or other Breast Imaging Interventions when appropriate. Th is patient will be placed in the appropriate reminder system. TECHNICAL DOCUMENTATION: FINDING NUMBER: (1) ASSESSMENT: (1) JOB ID: [id number] 2010 [employer]- All Rights Reserved Reading location - IP/workstation name: [email or web address]
== END ==
LOC: WI 09:24
PROVIDERS: ATTEND Physician Assistant
DX: Z12.31 Encounter for screening mammogram for malignant neoplasm of breast (principal); N63.20 Unspecified lump in the left breast, unspecified quadrant
CPT/HCPCS: 77067

== ENCOUNTER → 2020-02-29 | Outpatient (CLI) | payer MEDICARE | LOC: WI 11:03 | PROVIDERS: ATTEND Internal Medicine | DX: R92.8 Other abnormal and inconclusive findings on diagnostic imaging of breast (principal) | CPT/HCPCS: 76642; 77065 ==

== ENCOUNTER → 2020-09-19 | Outpatient (CLI) | payer MEDICARE ==
--- NOTE | 2020-09-19 11:57 | WOMENS IMAGING REPORT ---
EXAM DESCRIPTION: U/S BREAST UNILAT LIMITED IMAGES COMPLETED DATE/TIME: 09/19/2020 10:58 am REASON FOR STUDY: R92.8 R92.8 OTH ABN AND INCONCLUSIVE FINDINGS ON DX IMAGING OF MANUEL COMPARISON: 02/29/2020. TECHNIQUE: Real-time and static grayscale imaging performed of the left breast targeted to the area of clinical/mammographic concern, 6 o'clock location. Selected color Doppler images recorded. LIMITATIONS: None. FINDINGS: MASS: Again seen are multiple hypoechoic nodules, unchanged. Smooth margins. No distal s hadowing. OTHER: No other significant finding. IMPRESSION: Stable hypoechoic nodules in the inferior breast. BIRAD: 2 Benign findings. RECOMMENDATION: RECOMMENDED FOLLOW-UP: Resume routine screening mammography, next due in February 2021. COMMENT: The [place] [employer] (ACR) has developed recommendations for screening MRI of the breasts in certain patient populations, to be used in conjunction with mammography. Breast MRI s urveillance may be appropriate for women with more than 20% lifetime risk of developing breast cancer as determined by genetic testing, significant family history of the disease, or history of mantle r adiation for Hodgkins Disease. ACR Practice Guidelines 2008. TECHNICAL DOCUMENTATION: JOB ID: [id number] 2010 [employer]- All Rights Reserved Reading location - IP/workstation name: [email or web address]
== END ==
LOC: WI 10:27
PROVIDERS: ATTEND Internal Medicine
DX: N63.20 Unspecified lump in the left breast, unspecified quadrant (principal)
CPT/HCPCS: 76642

== ENCOUNTER → 2020-10-02 | Outpatient (CLI) | payer MEDICARE ==
--- NOTE | 2020-10-03 01:02 | RADIOLOGY REPORT (SQ) ---
CT left wrist without contrast on 10/02/2020 at 3:46 PM CLINICAL INDICATION: Continued left wrist pain, recent fracture with splint placement, numbness and tingling in fingers TECHNIQUE: Multiple axial images are obtained throughout the left wrist without the administration of contrast. Sagittal and coronal reformatted images are also performed and reviewed. 3D reconstructions were generated at a separate workstation under concurrent supervision to aid in evaluation of the cortical contours, articular surfaces, and bony alignment. This exam was performed according to our departmental dose-optimization program, which includes automated exposure control, adjustment of the mA and/or kV according to patient size and/or use of iterative reconstruction technique. Total DLP is 103.4 mGy*cm. COMPARISON: None FINDINGS: There is calcification of the triangular fibrocartilage and other ligamentous calcifications in the wrist consistent with changes of chondrocalcinosis and CPPD. There is subacute, comminuted, intra-articular, mildly impacted and minimally displaced distal radius metaphysis fracture. There is predominantly impaction and slight dorsal displacement of the distal fracture fragment. Changes of osteoarthritis are noted in the base of the thumb. No other fracture is noted. Mild subcutaneous edema is noted in the wrist. No other bony or soft tissue abnormality is noted by CT. IMPRESSION: Subacute impacted distal radius metaphysis fracture that extends intra-articularly with other chronic findings as above.
== END ==
LOC: RAD 15:24
PROVIDERS: ATTEND Orthopaedic Surgery
DX: S52.532A Colles' fracture of left radius, initial encounter for closed fracture (principal); X58.XXXA Exposure to other specified factors, initial encounter